=== PATIENT | male | born 1965 | race African-American/Black ===

== ENCOUNTER 2016-10-13 17:44 | Emergency (ER) | payer MEDICAID, OTHER ==
[~2016-10-13] VITALS: Ht 177.8 cm; Wt 83.9 kg
[~2016-10-13 17:44] MED LIST: ATORVASTATIN CA10 MG ORAL; CYCLOBENZAPRINE10 MG ORAL; NORCO 5-325 TA1 EACH ORAL; NORVASC10 MG ORAL; VICOPROFEN 2001 EACH ORAL
--- NOTE | 2016-10-13 18:08 | Emergency Room Report ---
History of Present Illness General Chief Complaint: Head Injury Source: Patient Present Illness HPI Patient is a 51-year-old male who presented after having increased altered level of consciousness. Patient reportedly had a fall approximately 1 day prior to arrival. Patient reportedly had been having increased slurring of speech. Patient had denied recent alcohol use. Patient states he fell and hit the right side of his head approximately 3 in the afternoon yesterday. He had not been vomiting. Patient reported having some pain to his right knee. Patient states he's had recent pain medication and had taken Vicoprofen after left shoulder surgery. Allergies: Coded Allergies: No Known Allergies (Unverified , 06/03/14) Patient History Past Medical History: see triage record Reviewed Nursing Documentation: PMH: Agreed, PSxH: Agreed Nursing Documentation-PMH Past Medical History: No History, Except For Hx Cardiac Problems: Yes Hx Hypertension: Yes - hyperlipidemia Hx Cancer: No Hx Gastrointestinal Problems: No Hx Neurological Problems: No Review of Systems All Other Systems: negative except mentioned in HPI Physical Exam Vital Signs Date Time Temp Pulse Resp B/P Pulse Ox O2 Delivery O2 Flow Rate FiO2 10/13/16 17:50 98.1 102 18 103/64 95 Room Air Sp02 EP Interpretation: reviewed, normal General Appearance: normal inspection, well appearing, no apparent distress, alert, GCS 15 Head: atraumatic ENT: normal ENT inspection, hearing grossly normal, normal voice Neck: normal inspection, full range of motion, supple, no bony tend Respiratory: normal inspection, lungs clear, normal breath sounds, no respiratory distress, no retraction, no wheezing Cardiovascular #1: regular rate, rhythm, no edema Gastrointestinal: normal inspection, normal bowel sounds, non tender, soft, no guarding, no hernia Genitourinary: no CVA tenderness Musculoskeletal: normal inspection, back normal, normal range of motion Neurologic: normal inspection, alert, oriented x3, responsive, office services associate III-XII nml as tested, speech normal Psychiatric: normal inspection, judgement/insight normal, mood/affect normal Skin: normal inspection, normal color, no rash Medical Decision Making Diagnostic Impression: Primary Impression: Acute head injury ER Course Patient presented after a fall. Differential diagnosis included was not limited to neck fracture, CVA, close head injury, syncopal episode, basilar ischemia. A CT imaging of the head was ordered due to patient's slurring of his speech. Because of complexity of patient's case laboratory imaging studies were ordered.CT the head read by radiology showed no acute fracture or hemorrhage. The patient noted have signs consistent with a minor head injury. Patient is also noted to be taking narcotic pain medication. Patient was advised to take Tylenol for pain. The patient noted have bilateral knee abrasions.The patient is advised to follow up with primary care doctor in 1-2 days. Patient is advised to return if any worsening condition or if any changes in status that are concerning. Last Vital Signs Date Time Temp Pulse Resp B/P Pulse Ox O2 Delivery O2 Flow Rate FiO2 10/13/16 17:50 98.1 102 18 103/64 95 Room Air Status: improved Disposition: HOME, SELF-CARE Condition: Stable Scripts Bacitracin Zinc* (BACITRACIN ZINC*) 1 Each Packet 1 APPLIC TOPIC THREE TIMES A DAY, #20 PACKET Prov: Harman Hart 10/13/16 Harman Hart Oct 13, 2016 18:08
[2016-10-13 18:16] VITALS: BP 103/64
[2016-10-13] MEDS ORDERED: Bacitracin Oint UD TOPIC ONE (18:30)
[2016-10-13] MEDS ORDERED: BACITRACIN ZIN1 EACH TOPIC (18:30)
[2016-10-13 19:04] VITALS: BP 115/70
[2016-10-13 19:05] VITALS: BP 115/70
--- NOTE | 2016-10-14 08:29 | Diagnostic Imaging Report ---
Indication: Altered mental status Technique: Continuous helical CT scanning of the head was performed without intravenous contrast material. Axial and coronal 5 mm sections were generated. Radiation dose was minimized using automated exposure control Dose: Total Dose Length Product - DLP [address] Dose Index - CTDIvol(s) 70.38 mGy. Comparison: None Findings: The ventricular system is normal in size and configuration. There is no shift of midline structures. No abnormal extra-axial fluid collections are noted. There is no evidence of intracerebral bleeding. No other abnormal high or low density areas are noted within the brain. Impression: Normal CT scan of the head without contrast material. This agrees with the preliminary interpretation provided overnight by [facility] service. The CT scanner at [facility] is accredited by the [employer] and the scans are performed using protocols designed to limit radiation exposure to as low as reasonably achievable to attain images of sufficient resolution adequate for diagnostic evaluation.
== END 2016-10-13 19:05 | disposition home or self-care (01) ==
LOC: EMR 18:15
DX: S09.8XXA Other specified injuries of head, initial encounter (principal); W19.XXXA Unspecified fall, initial encounter; Y92.89 Other specified places as the place of occurrence of the external cause; I10 Essential (primary) hypertension; E78.5 Hyperlipidemia, unspecified
CPT/HCPCS: 70450; 99284

== ENCOUNTER 2016-12-01 21:12 | Emergency (ER) | payer MEDICAID, OTHER ==
[~2016-12-01] VITALS: Ht 177.8 cm; Wt 83.0 kg
[~2016-12-01 21:12] MED LIST changes: +BACITRACIN ZIN1 EACH TOPIC
[2016-12-01] MEDS ORDERED: IBUPROFEN600 MG ORAL (21:39)
[2016-12-01] MEDS ORDERED: ACETAMINOPHEN-1 EAC1 ORAL (21:39)
[2016-12-01] MEDS ORDERED: VENTOLIN HFA18 GM INH (21:39)
[2016-12-01] MEDS ORDERED: TAMIFLU75 MG ORAL (21:39)
[2016-12-01] MEDS ORDERED: Albuterol ud Inhalation HHN ONE (21:45)
[2016-12-01] MEDS ORDERED: Ketorolac 60mg Inj IM ONE (21:45)
--- NOTE | 2016-12-01 21:45 | Emergency Room Report ---
History of Present Illness General Chief Complaint: Flu Like Symptoms Source: Patient Present Illness HPI 51YOM walk-in with 2 days myalgias, central sore throat pain, non productive cough. Didnt get flu shot this year. Denies smoking, asthma history. Denies chest pain, SOB, abd pain, headache, urinary complaints. Didnt take any OTC meds. Allergies: Coded Allergies: No Known Allergies (Unverified , 06/03/14) Patient History Past Medical History: HTN Past Surgical History: none Pertinent Family History: none Social History: Denies: alcohol use, drug use, smoking Immunizations: UTD Reviewed Nursing Documentation: PMH: Agreed, PSxH: Agreed Nursing Documentation-PMH Hx Cardiac Problems: Yes Hx Hypertension: Yes Hx Cancer: No Hx Gastrointestinal Problems: No Hx Neurological Problems: No Review of Systems All Other Systems: negative except mentioned in HPI Physical Exam Vital Signs Date Time Temp Pulse Resp B/P Pulse Ox O2 Delivery O2 Flow Rate FiO2 12/01/16 21:14 103.3 103 18 129/83 98 Room Air Sp02 EP Interpretation: reviewed, abnormal General Appearance: normal inspection, well appearing, no apparent distress, alert, GCS 15, non-toxic Head: normocephalic Eyes: bilateral eye EOMI, bilateral eye normal inspection ENT: normal ENT inspection, hearing grossly normal, normal pharynx, no angioedema, normal voice, TMs + canals normal, uvula midline, moist mucus membranes Neck: normal inspection, full range of motion, supple, thyroid normal, no meningismus, no bony tend Respiratory: normal inspection, lungs clear, normal breath sounds, no rhonchi, no respiratory distress, no retraction, no accessory muscle use, no wheezing, speaking full sentences Cardiovascular #1: regular rate, rhythm, no edema, tachycardia Gastrointestinal: normal inspection, normal bowel sounds, non tender, soft, no guarding, no hernia Genitourinary: no CVA tenderness Musculoskeletal: normal inspection, back normal, normal range of motion, Shila' s Sign negative Neurologic: normal inspection, alert, oriented x3, responsive, lace pinner III-XII nml as tested, motor strength/tone normal, speech normal Psychiatric: normal inspection, judgement/insight normal, mood/affect normal Skin: normal inspection Lymphatic: normal inspection Medical Decision Making Diagnostic Impression: Primary Impression: Influenza-like symptoms ER Course 51YOM with 2 days body aches, fever, sore throat. No obvious source of bacterial infection in oropharynx, ears, lungs, skin, abdomen on exam VS c/w fever here Low suspicion for PNA or other acute bacterial process that would warrant additional lab, imaging, testing or admission Low suspicion for acute meningitis given no meningismus, well appearance, not altered PMD followup closely DC home Understands to return for worsening symptoms - Take ALL of tamiflu as prescribed - Use albuterol and T#3 as needed for cough, body aches - Ibuprofen for body aches Last Vital Signs Date Time Temp Pulse Resp B/P Pulse Ox O2 Delivery O2 Flow Rate FiO2 12/01/16 21:29 103 18 Room Air 12/01/16 21:14 103.3 129/83 98 Status: improved Disposition: HOME, SELF-CARE Condition: Improved Scripts Albuterol Sulfate (VENTOLIN HFA) 18 Gm Hfa.aer.ad 1 PUFF INH EVERY 6 HOURS for For Cough, #18 GM 0 Refills Prov: LISA HERNANDEZ M.D. 12/01/16 Acetaminophen With Codeine (T#3) (TYLENOL #3 TAB*) Y Tab 1 TAB ORAL QHS Y for For Cough for 7 Days, #20 TAB Prov: LISA HERNANDEZ M.D. 12/01/16 Ibuprofen* (MOTRIN*) 600 Mg Tablet 600 MG ORAL THREE TIMES A DAY for pain, body aches for 7 Days, #30 TAB 0 Refills Prov: LISA HERNANDEZ M.D. 12/01/16 Oseltamivir Phosphate (Tamiflu) 75 Mg Capsule 75 MG ORAL TWICE A DAY for 5 Days, #10 CAP Prov: LISA HERNANDEZ M.D. 12/01/16 Patient Instructions: Influenza, Adult, [id number] Additional Instructions: - Drink plenty of fluids, eat healthy food, get mild exercise - Take ALL of tamiflu until complete - Take ibuprofen every 8 hours for food as needed for sore throat and body aches - For cough, use albuterol pump during the day and Tylenol #3 at night - Follow up with your primary care doctor in 2-3 days LISA HERNANDEZ M.D. December 01, 2016 21:45
[2016-12-01 22:05] VITALS: BP 129/83
== END 2016-12-01 22:06 | disposition home or self-care (01) ==
LOC: EMR 21:50
DX: J11.1 Influenza due to unidentified influenza virus with other respiratory manifestations (principal); I10 Essential (primary) hypertension
CPT/HCPCS: 94640; 94664; 96372; 99284

== ENCOUNTER 2017-08-04 15:47 | Inpatient (IN) | payer MEDICAID, OTHER ==
[~2017-08-04] VITALS: Ht 177.8 cm; Wt 77.1 kg
[~2017-08-04 15:47] MED LIST changes: +ACETAMINOPHEN-1 EAC1 ORAL; +IBUPROFEN600 MG ORAL; +TAMIFLU75 MG ORAL; +VENTOLIN HFA18 GM INH
[2017-08-04 16:14] VITALS: BP 128/85
--- NOTE | 2017-08-04 17:06 | Diagnostic Imaging Report ---
Indication: Chest pain Technique: One view of the chest Comparison: And Findings: Lungs and pleural spaces are clear. Heart size is normal. There is a right shoulder prosthesis Impression: No acute process
[2017-08-04 17:11] LABS: APPEARANCE,URINE CLEAR; BILIRUBIN, URINE NEGATIVE (NEGATIVE); COLOR,URINE BROWN; GLUCOSE, URINE (UA) NEGATIVE (NEGATIVE); HEMATOCRIT 44.2 % (42.0-52.0); HEMOGLOBIN 14.4 G/DL (14.2-18.0); KETONES,URINE 1+ (NEGATIVE); LEUKOCYTE ESTERASE ,URINE 1+ (NEGATIVE); MEAN CORPUSCULAR VOLUME 93 FL (80-99); NITRITE,URINE NEGATIVE (NEGATIVE); PH,URINE 7 (4.5-8.0); PLATELET COUNT 255 K/UL (150-450); PROTEIN,URINE 2+ (NEGATIVE); RED BLOOD COUNT 4.74 M/UL (4.70-6.10); RED CELL DISTRIBUTION WIDTH 11.3 % (11.6-14.8); UROBILINOGEN,URINE 4 MG/DL (0.0-1.0); WHITE BLOOD COUNT 18.5 K/UL (4.8-10.8)
[2017-08-04 17:15] LABS: BASOPHILS % (AUTO) 0.9 % (0.0-2.0); EOSINOPHILS % (AUTO) 0.1 % (0.0-3.0); LYMPHOCYTES % (AUTO) 10.2 % (20.0-45.0); MONOCYTES % (AUTO) 5.5 % (1.0-10.0); NEUTROPHILS % (AUTO) 83.3 % (45.0-75.0)
[2017-08-04] MEDS ORDERED: Ampicillin/Sulbactam Sod 3 GM in NS 110 ML IVPB ONE (17:30)
[2017-08-04] MEDS ORDERED: NS 110 ML ONE (17:31)
[2017-08-04] MEDS ORDERED: Tubing IV Cassette IV ONE (17:31)
[2017-08-04] MEDS ORDERED: Unasyn 3gm Inj ONE (17:31)
[2017-08-04 17:40] LABS: ANION GAP 12 mmol/L (5-15); BLOOD UREA NITROGEN 12 mg/dL (7-18); CALCIUM 9.2 MG/DL (8.5-10.1); CARBON DIOXIDE 25 MMOL/L (21-32); CHLORIDE 102 MMOL/L (98-107); CREATININE 1.5 MG/DL (0.55-1.30); POTASSIUM 3.9 MMOL/L (3.5-5.1); SODIUM 139 MMOL/L (136-145)
[2017-08-04 17:46] LABS: ALANINE AMINOTRANSFERASE 65 U/L (12-78); ALBUMIN 3.3 G/DL (3.4-5.0); ALBUMIN/GLOBULIN RATIO 0.6 (1.0-2.7); ALKALINE PHOSPHATASE 118 U/L (46-116); ASPARTATE AMINO TRANSFERASE 46 U/L (15-37); BILIRUBIN,TOTAL 0.6 MG/DL (0.2-1.0); CREATINE KINASE 614 U/L (26-308)
[2017-08-04 18:00] VITALS: BP 138/78
[2017-08-04] MEDS ORDERED: Miralax 17gm pkt ORAL PRN (18:15)
[2017-08-04] MEDS ORDERED: Albuterol/Ipratropium 3ml neb HHN PRN (18:15)
[2017-08-04] MEDS ORDERED: LORazepam Inj 2mg/ml 1ml IV PRN (18:15)
[2017-08-04] MEDS: Morphine Sulfate 4mg/ml Inj IVP PRN (19:38)
--- NOTE | 2017-08-04 21:54 | Emergency Room Report ---
History of Present Illness General Chief Complaint: Fever Present Illness HPI 52-year-old male presents to the emergency department complaining of fevers, chills and multiple episodes of vomiting since yesterday. Patient denies blood in the vomit he denies bloody stool, diarrhea or constipation. Reports 6/10 in severity [place], denies neck pain/stiffness or photophobia. Patient denies abdominal tenderness he reports only mild epigastric pain 4/10 in severity cramping in nature during episodes of vomiting. Patient states he does not have appreciable cough however he has been coughing intermittently which is nonproductive. Patient also reports some nasal congestion. Patient is up-to- date with vaccinations except at this ears flu shot he is relatively healthy and is only diagnosis of hypertension for which he takes Norvasc. Denies CP, Palpitations, LOC, AMS, dizziness, Changes in Vision, Sensation, paresthesias, or a sudden severe headache. Allergies: Coded Allergies: No Known Allergies (Unverified , 06/03/14) Patient History Past Medical History: see triage record, HTN - takes norvasc Past Surgical History: none Pertinent Family History: none Immunizations: UTD - no flu Reviewed Nursing Documentation: PMH: Agreed, PSxH: Agreed Nursing Documentation-PMH Hx Cardiac Problems: Yes Hx Hypertension: Yes Hx Cancer: No Hx Gastrointestinal Problems: No Hx Neurological Problems: No Review of Systems All Other Systems: negative except mentioned in HPI Physical Exam Vital Signs Date Time Temp Pulse Resp B/P (MAP) Pulse Ox O2 Delivery O2 Flow Rate FiO2 08/04/17 15:56 102.6 122 20 132/83 94 Room Air Sp02 EP Interpretation: reviewed, normal General Appearance: no apparent distress, alert, GCS 15, mild distress Head: normocephalic, atraumatic Eyes: bilateral eye normal inspection, bilateral eye PERRL ENT: hearing grossly normal, normal pharynx, normal voice, TMs + canals normal , uvula midline Neck: full range of motion, no meningismus, no bony tend Respiratory: chest non-tender, lungs clear, normal breath sounds, no respiratory distress, no accessory muscle use, speaking full sentences Cardiovascular #1: no edema, tachycardia Gastrointestinal: normal bowel sounds, non tender, soft Rectal: deferred Musculoskeletal: back normal, gait/station normal, normal range of motion, non- tender Neurologic: alert, oriented x3, responsive, motor strength/tone normal, sensory intact, speech normal, grossly normal Psychiatric: judgement/insight normal Skin: normal color, no rash, warm/dry Lymphatic: no adenopathy Medical Decision Making PA Attestation Dr. Hart is my supervising Physician whom patient management has been discussed with. Diagnostic Impression: Primary Impression: Acute kidney injury Additional Impressions: Acute kidney failure Qualified Codes: N17.9 - Acute kidney failure, unspecified Acute febrile illness Dehydration ER Course 52-year-old male presents to the emergency department complaining of fevers, chills and multiple episodes of vomiting since yesterday. Patient denies blood in the vomit he denies bloody stool, diarrhea or constipation. Reports 6/10 in severity [place], denies neck pain/stiffness or photophobia. Patient denies abdominal tenderness he reports only mild epigastric pain 4/10 in severity cramping in nature during episodes of vomiting. Patient states he does not have appreciable cough however he has been coughing intermittently which is nonproductive. Patient also reports some nasal congestion. Patient is up-to- date with vaccinations except at this ears flu shot he is relatively healthy and is only diagnosis of hypertension for which he takes Norvasc. Denies CP, Palpitations, LOC, AMS, dizziness, Changes in Vision, Sensation, paresthesias, or a sudden severe headache. Ddx considered but are not limited to URI, pneumonia, PE, strep pharyngitis, meningitis, influenza, OM/OE just to name a few. Vital signs: Pt. is tachycardic and febrile. H&PE are most consistent with Viral Syndrome suspicious for Influenza will treat clinically - no meningeal signs, Lungs are clear and oropharynx is not involved, no evidence of bacterial infection at this time. ORDERS: -CBC: leukocytosis of 18 -CMP: elevated Cr. 1.5, and elevated Total Ck and ALk Phos. Lactic Acid: 1.1 -Blood cultures: Pending -Influenza A & B: Negative -Trops: Negative -UA: occult blood, dark brown in color, TNTC RBC's, few bacteria and few squamous. ED INTERVENTIONS: -1 Liter NS Bolus - Zofran IV -Tylenol PO - Unasyn IV DISPOSITION: at this time pt. will be admitted to Dr. Macias for Acute febrile illness. Dr. Macias agreed to admit the pt. and to continue pt. care management. Labs Test 08/04/17 16:50 08/04/17 18:00 White Blood Count 18.5 K/UL (4.8-10.8) Red Blood Count 4.74 M/UL (4.70-6.10) Hemoglobin 14.4 G/DL (14.2-18.0) Hematocrit 44.2 % (42.0-52.0) Mean Corpuscular Volume 93 FL (80-99) Mean Corpuscular Hemoglobin 30.3 PG (27.0-31.0) Mean Corpuscular Hemoglobin Concent 32.5 G/DL (32.0-36.0) Red Cell Distribution Width 11.3 % (11.6-14.8) Platelet Count 255 K/UL (150-450) Mean Platelet Volume 7.0 FL (6.5-10.1) Neutrophils (%) (Auto) 83.3 % (45.0-75.0) Lymphocytes (%) (Auto) 10.2 % (20.0-45.0) Monocytes (%) (Auto) 5.5 % (1.0-10.0) Eosinophils (%) (Auto) 0.1 % (0.0-3.0) Basophils (%) (Auto) 0.9 % (0.0-2.0) Urine Color Brown Urine Appearance Clear Urine pH 7 (4.5-8.0) Urine Specific [place] 1.010 (1.005-1.035) Urine Protein 2+ (NEGATIVE) Urine Glucose (UA) Negative (NEGATIVE) Urine Ketones 1+ (NEGATIVE) Urine Occult Blood 3+ (NEGATIVE) Urine Nitrite Negative (NEGATIVE) Urine Bilirubin Negative (NEGATIVE) Urine Urobilinogen 4 MG/DL (0.0-1.0) Urine Leukocyte Esterase 1+ (NEGATIVE) Urine RBC 5-10 /HPF (0 - 0) Urine WBC 2-4 /HPF (0 - 0) Urine Squamous Epithelial Cells Occasional /LPF Urine Bacteria Few /HPF (NONE) Urine Mucus Few /LPF (NONE/OCC) Sodium Level 139 MMOL/L (136-145) Potassium Level 3.9 MMOL/L (3.5-5.1) Chloride Level 102 MMOL/L (98-107) Carbon Dioxide Level 25 MMOL/L (21-32) Anion Gap 12 mmol/L (5-15) Blood Urea Nitrogen 12 mg/dL (7-18) Creatinine 1.5 MG/DL (0.55-1.30) Estimat Glomerular Filtration Rate 59.4 mL/min (>60) Glucose Level 107 MG/DL (74-106) Calcium Level 9.2 MG/DL (8.5-10.1) Total Bilirubin 0.6 MG/DL (0.2-1.0) Aspartate Amino Transf (AST/SGOT) 46 U/L (15-37) Alanine Aminotransferase (ALT/SGPT) 65 U/L (12-78) Alkaline Phosphatase 118 U/L (46-116) Total Creatine Kinase 614 U/L (26-308) Troponin I 0.000 ng/mL (0.000-0.056) Total Protein 8.5 G/DL (6.4-8.2) Albumin 3.3 G/DL (3.4-5.0) Globulin 5.2 g/dL Albumin/Globulin Ratio 0.6 (1.0-2.7) Lactic Acid Level 1.10 mmol/L (0.66-2.22) EKG Diagnostic Results EP Interpretation: Dr. Hart Rate: normal - 99 BPM Rhythm: NSR ST Segments: no acute changes ASA given to the pt in ED: No PA Scribe Text This Interpretation was scribed by FARHAT Vizcarra. Chest X-Ray Diagnostic Results Chest X-Ray Diagnostic Results : Chest X-Ray Ordered: Yes # of Views/Limited/Complete: 1 View Indication: Shortness of Breath EP Interpretation: Yes FARHAT Xray: Interpretation reviewed, by supervising MD, and agrees with findings. Interpretation: no consolidation, no effusion, no pneumothorax Impression: No acute disease Electronically Signed by: Jayna Vizcarra PA-C Last Vital Signs Date Time Temp Pulse Resp B/P (MAP) Pulse Ox O2 Delivery O2 Flow Rate FiO2 08/04/17 18:00 103.3 110 20 138/78 97 08/04/17 16:14 Room Air Disposition: ADMITTED INPATIENT Condition: Serious Scripts Oseltamivir Phosphate (Tamiflu) 75 Mg Capsule 75 MG ORAL TWICE A DAY, #10 CAP Prov: Shad (Luis)Linda NP 08/07/17 Referrals: NON PHYSICIAN (PCP) Jayna Vizcarra Aug 04, 2017 21:54
[2017-08-04] MEDS ORDERED: Vancomycin 1250mg/D5W 250ml IVPB ONE (22:00)
[2017-08-04 22:14] VITALS: BP 135/83
[2017-08-04] MEDS ORDERED: Cefepime 2gm ONE (23:38)
[2017-08-05] MEDS: Morphine Sulfate 4mg/ml Inj IVP PRN ×6 (00:01→21:38)
[2017-08-05] MEDS: Heparin 5000 units/ml inj SUBQ SCH ×3 (00:05→21:46)
[2017-08-05 04:00] VITALS: BP 131/85
[2017-08-05 08:30] VITALS: BP 141/92
[2017-08-05] MEDS: Cefepime HCl 2 GM in NS 110 ML IV SCH ×3 (08:55)
[2017-08-05] MEDS ORDERED: Vancomycin 1 GM in D5W 275 ML IVPB SCH (10:00)
[2017-08-05 11:07] LABS: BASOPHILS % (AUTO) 0.9 % (0.0-2.0); HEMATOCRIT 38.5 % (42.0-52.0); HEMOGLOBIN 12.6 G/DL (14.2-18.0); LYMPHOCYTES % (AUTO) 8.5 % (20.0-45.0); MEAN CORPUSCULAR VOLUME 94 FL (80-99); MONOCYTES % (AUTO) 7.9 % (1.0-10.0); NEUTROPHILS % (AUTO) 82.7 % (45.0-75.0); PLATELET COUNT 210 K/UL (150-450); RED BLOOD COUNT 4.09 M/UL (4.70-6.10); RED CELL DISTRIBUTION WIDTH 11.4 % (11.6-14.8); WHITE BLOOD COUNT 16.3 K/UL (4.8-10.8)
[2017-08-05 11:33] LABS: ALBUMIN 2.8 G/DL (3.4-5.0); ANION GAP 11 mmol/L (5-15); BLOOD UREA NITROGEN 10 mg/dL (7-18); CALCIUM 8.9 MG/DL (8.5-10.1); CARBON DIOXIDE 24 MMOL/L (21-32); CHLORIDE 102 MMOL/L (98-107); CREATININE 1.3 MG/DL (0.55-1.30); PHOSPHORUS 2.4 MG/DL (2.5-4.9); POTASSIUM 3.6 MMOL/L (3.5-5.1); SODIUM 137 MMOL/L (136-145)
[2017-08-05 12:00] VITALS: BP 129/89
--- NOTE | 2017-08-05 14:06 | Consultation ---
History of Present Illness General Date patient seen: Aug 05, 2017 Time patient seen: 14:05 Chief Complaint: Fever Present Illness HPI 52 y/o M with hx of HTN presents to ED on 08/04 with fevers/chills and multiple episodes of vomiting and EDMONDSON (6/10 severity) for 1 day duration. Also mild cramping epigastric pain (4/10 severity) during episodes of vomiting. + intermittent non-productive cough, +nasal congestion. Did not received Flu shot this year. Denies hematemesis, melena, hematochezia, diarrhea, neck pain/stiffness, photophobia, LOC, dizziness, visual changes, numbness/tingling. Febrile up to 103. Leukocytosis up to 18, now down to 16. rapid influenza neg. Started on IV Vanco and Cefepime. Allergies: Coded Allergies: No Known Allergies (Unverified , 06/03/14) Medication History Scheduled Albuterol Sulfate (Ventolin Hfa), 1 PUFF INH EVERY 6 HOURS Amlodipine Besylate (Norvasc), 10 MG ORAL DAILY, (Reported) Atorvastatin Calcium* (Lipitor*), 10 MG ORAL BEDTIME, (Reported) Bacitracin Zinc* (Bacitracin Zinc*), 1 APPLIC TOPIC THREE TIMES A DAY Hydrocodone/Ibuprofen (Vicoprofen 200-7.5 Mg Tab), 2 TAB ORAL QID, (Reported) Ibuprofen* (Motrin*), 600 MG ORAL THREE TIMES A DAY Oseltamivir Phosphate (Tamiflu), 75 MG ORAL TWICE A DAY Scheduled PRN Acetaminophen With Codeine (T#3) (Tylenol #3 Tab*), 1 TAB ORAL QHS PRN for For Cough Patient History Healthcare decision maker N Resuscitation status Full Code Advanced Directive on File No Patient History Narrative Pmhx: as above Shx: reviewed Fhx: non contributory Review of Systems All Other Systems: negative except mentioned in HPI Physical Exam Physical Exam Narrative General Appearance: no apparent distress, alert, mild distress Head: normocephalic, atraumatic Eyes: bilateral eye normal inspection, bilateral eye PERRL ENT: hearing grossly normal, normal pharynx, normal voice, TMs + canals normal , uvula midline Neck: full range of motion, no meningismus, no bony tend Respiratory: chest non-tender, lungs clear, normal breath sounds, no respiratory distress, no accessory muscle use, speaking full sentences Cardiovascular : regular rate, rhythm, no edema Gastrointestinal: normal bowel sounds, non tender, soft Musculoskeletal: back normal, gait/station normal, normal range of motion, non- tender Skin: normal color, no rash, warm/dry Last 24 Hour Vital Signs Date Time Temp Pulse Resp B/P (MAP) Pulse Ox O2 Delivery O2 Flow Rate FiO2 08/05/17 13:24 99.5 08/05/17 09:57 99.5 08/05/17 09:57 99.5 08/05/17 08:54 105 141/92 08/05/17 08:30 102.2 105 18 141/92 95 Room Air 08/05/17 07:46 104 08/05/17 04:00 101.8 107 20 131/85 94 Room Air 08/05/17 04:00 105 08/05/17 00:00 106 08/04/17 22:14 103.3 110 20 138/78 97 Room Air 08/04/17 22:14 98.9 86 20 135/83 97 Room Air 110 08/04/17 18:00 103.3 110 20 138/78 97 08/04/17 16:14 102.6 90 20 128/85 94 Room Air 08/04/17 15:56 102.6 122 20 132/83 94 Room Air Intake and Output 08/04/17 08/05/17 19:00 07:00 Intake Total 110 ml 50 ml Balance 110 ml 50 ml Intake Oral 0 ml IV Total 110 ml 50 ml # Voids 2 Laboratory Tests Test 08/04/17 16:50 08/04/17 18:00 08/05/17 10:00 White Blood Count 18.5 K/UL (4.8-10.8) H 16.3 K/UL (4.8-10.8) H Red Blood Count 4.74 M/UL (4.70-6.10) 4.09 M/UL (4.70-6.10) L Hemoglobin 14.4 G/DL (14.2-18.0) 12.6 G/DL (14.2-18.0) L Hematocrit 44.2 % (42.0-52.0) 38.5 % (42.0-52.0) L Mean Corpuscular Volume 93 FL (80-99) 94 FL (80-99) Mean Corpuscular Hemoglobin 30.3 PG (27.0-31.0) 30.7 PG (27.0-31.0) Mean Corpuscular Hemoglobin Concent 32.5 G/DL (32.0-36.0) 32.7 G/DL (32.0-36.0) Red Cell Distribution Width 11.3 % (11.6-14.8) L 11.4 % (11.6-14.8) L Platelet Count 255 K/UL (150-450) 210 K/UL (150-450) Mean Platelet Volume 7.0 FL (6.5-10.1) 7.2 FL (6.5-10.1) Neutrophils (%) (Auto) 83.3 % (45.0-75.0) H 82.7 % (45.0-75.0) H Lymphocytes (%) (Auto) 10.2 % (20.0-45.0) L 8.5 % (20.0-45.0) L Monocytes (%) (Auto) 5.5 % (1.0-10.0) 7.9 % (1.0-10.0) Eosinophils (%) (Auto) 0.1 % (0.0-3.0) 0.0 % (0.0-3.0) Basophils (%) (Auto) 0.9 % (0.0-2.0) 0.9 % (0.0-2.0) Urine Color Brown Urine Appearance Clear Urine pH 7 (4.5-8.0) Urine Specific [place] 1.010 (1.005-1.035) Urine Protein 2+ (NEGATIVE) H Urine Glucose (UA) Negative (NEGATIVE) Urine Ketones 1+ (NEGATIVE) H Urine Occult Blood 3+ (NEGATIVE) H Urine Nitrite Negative (NEGATIVE) Urine Bilirubin Negative (NEGATIVE) Urine Urobilinogen 4 MG/DL (0.0-1.0) H Urine Leukocyte Esterase 1+ (NEGATIVE) H Urine RBC 5-10 /HPF (0 - 0) H Urine WBC 2-4 /HPF (0 - 0) Urine Squamous Epithelial Cells Occasional /LPF Urine Bacteria Few /HPF (NONE) Urine Mucus Few /LPF (NONE/OCC) H Sodium Level 139 MMOL/L (136-145) 137 MMOL/L (136-145) Potassium Level 3.9 MMOL/L (3.5-5.1) 3.6 MMOL/L (3.5-5.1) Chloride Level 102 MMOL/L (98-107) 102 MMOL/L (98-107) Carbon Dioxide Level 25 MMOL/L (21-32) 24 MMOL/L (21-32) Anion Gap 12 mmol/L (5-15) 11 mmol/L (5-15) Blood Urea Nitrogen 12 mg/dL (7-18) 10 mg/dL (7-18) Creatinine 1.5 MG/DL (0.55-1.30) H 1.3 MG/DL (0.55-1.30) Estimat Glomerular Filtration Rate 59.4 mL/min (>60) > 60 mL/min (>60) Glucose Level 107 MG/DL (74-106) H 115 MG/DL (74-106) H Calcium Level 9.2 MG/DL (8.5-10.1) 8.9 MG/DL (8.5-10.1) Total Bilirubin 0.6 MG/DL (0.2-1.0) Aspartate Amino Transf (AST/SGOT) 46 U/L (15-37) H Alanine Aminotransferase (ALT/SGPT) 65 U/L (12-78) Alkaline Phosphatase 118 U/L (46-116) H Total Creatine Kinase 614 U/L (26-308) H Troponin I 0.000 ng/mL (0.000-0.056) Total Protein 8.5 G/DL (6.4-8.2) H Albumin 3.3 G/DL (3.4-5.0) L 2.8 G/DL (3.4-5.0) L Globulin 5.2 g/dL Albumin/Globulin Ratio 0.6 (1.0-2.7) L Lactic Acid Level 1.10 mmol/L (0.66-2.22) Phosphorus Level 2.4 MG/DL (2.5-4.9) L Microbiology Date/Time Source Procedure Growth Status 08/04/17 16:35 Nasal Nares Influenza Types A,B Antigen (NANCY) - Final Complete Height (Feet): 5 Height (Inches): 10.00 Weight (Pounds): 170 Medications Current Medications Medications (Trade) Dose Ordered Sig/Abby Route PRN Reason Start Time Stop Time Status Last Admin Dose Admin Acetaminophen (Tylenol) 650 mg Q4H PRN ORAL T>100.5 08/04/17 18:15 09/03/17 18:14 08/05/17 08:58 Albuterol/ Ipratropium (Albuterol/ Ipratropium) 3 ml Q4H PRN HHN Shortness of Breath 08/04/17 18:15 08/09/17 18:14 Amlodipine Besylate (Norvasc) 10 mg DAILY ORAL 08/05/17 09:00 09/04/17 08:59 08/05/17 08:54 Atorvastatin Calcium (Lipitor) 10 mg BEDTIME ORAL 08/04/17 21:00 09/03/17 20:59 08/04/17 23:59 Cefepime HCl 2 gm/ Sodium Chloride 110 ml @ 220 mls/hr EVERY 12 HOURS IV 08/04/17 21:00 08/11/17 20:59 08/05/17 08:55 Dextrose (Dextrose 50%) STAT PRN IV Hypoglycemia 08/04/17 18:15 09/03/17 18:14 Heparin Sodium (Porcine) (Heparin 5000 units/ml) 5,000 units EVERY 12 HOURS SUBQ 08/04/17 21:00 09/03/17 20:59 08/05/17 08:45 Lorazepam (Ativan 2mg/ml 1ml) 2 mg Q2H PRN IV For Anxiety 08/04/17 18:15 08/11/17 18:14 Morphine Sulfate (Morphine Sulfate) 4 mg Q4H PRN IVP Severe Pain (Pain Scale 7-10) 08/04/17 18:15 08/11/17 18:14 08/05/17 12:54 Ondansetron HCl (Zofran) 4 mg Q6H PRN IVP Nausea & Vomiting 08/04/17 18:15 09/03/17 18:14 Polyethylene Glycol (Miralax) 17 gm DAILYPRN PRN ORAL Constipation 08/04/17 18:15 09/03/17 18:14 Sodium Chloride 1,000 ml @ 50 mls/hr Q20H IV 08/04/17 19:00 09/03/17 18:59 08/04/17 23:59 Vancomycin HCl (Vanco rx to dose) 1 ea DAILY PRN MISC PRN RX TO DOSE PROTOCOL 08/04/17 21:00 09/03/17 20:59 Vancomycin HCl 1 gm/Dextrose 275 ml @ 183.3 mls/ hr Q12HR@1000,2200 IVPB 08/05/17 10:00 08/10/17 09:59 08/05/17 10:42 Assessment/Plan Assessment/Plan Abx: IV Vanco 08/04- Cefepime 08/04- IV Unasyn x1 08/04 Assessment: Viral syndrome- high suspicion for Influenza despite rapid test. r/o bacteremia , r/o Acute HIV Fever/leukocytosis -CXR: : No acute process -u/a WBC 2-4, nit -, leuk +1 -Bcx p Headache- no meningismus signs, however severe and persistent- suspect meningitis (likely aseptic, however suspicion for bacterial process) HTN Plan: -Will treat empirically for Influenza; start Tamiflu #07/10 -repeat influenza test, RSV ag -HIV ab and VL -will Continue for now empiric IV Vanco and switch Cefepime #2 to Ceftriaxone pending Bcx and CSF profile; may d/c in 24-48hrs pending cx -CRP -will obtain Lumbar puncture -CSF analysis, cx, WNV ab -f/u cx -Monitor CBC/CMP, temperatures -supportive treatment/pain control Thank you for this consultation. Will continue to follow along with you. Discussed with Ivelisse Lira M.D. Aug 05, 2017 14:06
--- NOTE | 2017-08-05 15:29 | History and Physical ---
History of Present Illness General Date patient seen: Aug 05, 2017 Reason for Hospitalization: Fever Present Illness HPI 52-year-old male presents to the emergency department complaining of fevers, chills and multiple episodes of vomiting . Reports 6/10 in severity EDMONDSON, denies neck pain/stiffness or photophobia. He reports only mild epigastric pain 4/10 in severity cramping in nature during episodes of vomiting. Patient states he does not have appreciable cough however he has been coughing intermittently which is nonproductive. Allergies: Coded Allergies: No Known Allergies (Unverified , 06/03/14) Medication History Scheduled Albuterol Sulfate (Ventolin Hfa), 1 PUFF INH EVERY 6 HOURS Amlodipine Besylate (Norvasc), 10 MG ORAL DAILY, (Reported) Atorvastatin Calcium* (Lipitor*), 10 MG ORAL BEDTIME, (Reported) Bacitracin Zinc* (Bacitracin Zinc*), 1 APPLIC TOPIC THREE TIMES A DAY Hydrocodone/Ibuprofen (Vicoprofen 200-7.5 Mg Tab), 2 TAB ORAL QID, (Reported) Ibuprofen* (Motrin*), 600 MG ORAL THREE TIMES A DAY Oseltamivir Phosphate (Tamiflu), 75 MG ORAL TWICE A DAY Scheduled PRN Acetaminophen With Codeine (T#3) (Tylenol #3 Tab*), 1 TAB ORAL QHS PRN for For Cough Patient History Healthcare decision maker N Resuscitation status Full Code Advanced Directive on File No Review of Systems Constitutional: Reports: fever Neurological: Reports: headache Physical Exam General Appearance: WD/WN Lines, tubes and drains: peripheral HEENT: normocephalic Neck: non-tender Respiratory/Chest: chest wall non-tender Cardiovascular/Chest: normal peripheral pulses, normal rate Abdomen: normal bowel sounds Last 24 Hour Vital Signs Date Time Temp Pulse Resp B/P (MAP) Pulse Ox O2 Delivery O2 Flow Rate FiO2 08/05/17 13:24 99.5 08/05/17 12:00 98.1 92 18 129/89 94 Room Air 08/05/17 11:27 91 08/05/17 09:57 99.5 08/05/17 09:57 99.5 08/05/17 08:54 105 141/92 08/05/17 08:30 102.2 105 18 141/92 95 Room Air 08/05/17 07:46 104 08/05/17 04:00 101.8 107 20 131/85 94 Room Air 08/05/17 04:00 105 08/05/17 00:00 106 08/04/17 22:14 103.3 110 20 138/78 97 Room Air 08/04/17 22:14 98.9 86 20 135/83 97 Room Air 110 08/04/17 18:00 103.3 110 20 138/78 97 08/04/17 16:14 102.6 90 20 128/85 94 Room Air 08/04/17 15:56 102.6 122 20 132/83 94 Room Air Intake and Output 08/04/17 08/05/17 19:00 07:00 Intake Total 110 ml 50 ml Balance 110 ml 50 ml Intake Oral 0 ml IV Total 110 ml 50 ml # Voids 2 Laboratory Tests Test 08/04/17 16:50 08/04/17 18:00 08/05/17 10:00 08/05/17 14:30 White Blood Count 18.5 K/UL (4.8-10.8) H 16.3 K/UL (4.8-10.8) H Red Blood Count 4.74 M/UL (4.70-6.10) 4.09 M/UL (4.70-6.10) L Hemoglobin 14.4 G/DL (14.2-18.0) 12.6 G/DL (14.2-18.0) L Hematocrit 44.2 % (42.0-52.0) 38.5 % (42.0-52.0) L Mean Corpuscular Volume 93 FL (80-99) 94 FL (80-99) Mean Corpuscular Hemoglobin 30.3 PG (27.0-31.0) 30.7 PG (27.0-31.0) Mean Corpuscular Hemoglobin Concent 32.5 G/DL (32.0-36.0) 32.7 G/DL (32.0-36.0) Red Cell Distribution Width 11.3 % (11.6-14.8) L 11.4 % (11.6-14.8) L Platelet Count 255 K/UL (150-450) 210 K/UL (150-450) Mean Platelet Volume 7.0 FL (6.5-10.1) 7.2 FL (6.5-10.1) Neutrophils (%) (Auto) 83.3 % (45.0-75.0) H 82.7 % (45.0-75.0) H Lymphocytes (%) (Auto) 10.2 % (20.0-45.0) L 8.5 % (20.0-45.0) L Monocytes (%) (Auto) 5.5 % (1.0-10.0) 7.9 % (1.0-10.0) Eosinophils (%) (Auto) 0.1 % (0.0-3.0) 0.0 % (0.0-3.0) Basophils (%) (Auto) 0.9 % (0.0-2.0) 0.9 % (0.0-2.0) Urine Color Brown Urine Appearance Clear Urine pH 7 (4.5-8.0) Urine Specific [place] 1.010 (1.005-1.035) Urine Protein 2+ (NEGATIVE) H Urine Glucose (UA) Negative (NEGATIVE) Urine Ketones 1+ (NEGATIVE) H Urine Occult Blood 3+ (NEGATIVE) H Urine Nitrite Negative (NEGATIVE) Urine Bilirubin Negative (NEGATIVE) Urine Urobilinogen 4 MG/DL (0.0-1.0) H Urine Leukocyte Esterase 1+ (NEGATIVE) H Urine RBC 5-10 /HPF (0 - 0) H Urine WBC 2-4 /HPF (0 - 0) Urine Squamous Epithelial Cells Occasional /LPF Urine Bacteria Few /HPF (NONE) Urine Mucus Few /LPF (NONE/OCC) H Sodium Level 139 MMOL/L (136-145) 137 MMOL/L (136-145) Potassium Level 3.9 MMOL/L (3.5-5.1) 3.6 MMOL/L (3.5-5.1) Chloride Level 102 MMOL/L (98-107) 102 MMOL/L (98-107) Carbon Dioxide Level 25 MMOL/L (21-32) 24 MMOL/L (21-32) Anion Gap 12 mmol/L (5-15) 11 mmol/L (5-15) Blood Urea Nitrogen 12 mg/dL (7-18) 10 mg/dL (7-18) Creatinine 1.5 MG/DL (0.55-1.30) H 1.3 MG/DL (0.55-1.30) Estimat Glomerular Filtration Rate 59.4 mL/min (>60) > 60 mL/min (>60) Glucose Level 107 MG/DL (74-106) H 115 MG/DL (74-106) H Calcium Level 9.2 MG/DL (8.5-10.1) 8.9 MG/DL (8.5-10.1) Total Bilirubin 0.6 MG/DL (0.2-1.0) Aspartate Amino Transf (AST/SGOT) 46 U/L (15-37) H Alanine Aminotransferase (ALT/SGPT) 65 U/L (12-78) Alkaline Phosphatase 118 U/L (46-116) H Total Creatine Kinase 614 U/L (26-308) H Troponin I 0.000 ng/mL (0.000-0.056) Total Protein 8.5 G/DL (6.4-8.2) H Albumin 3.3 G/DL (3.4-5.0) L 2.8 G/DL (3.4-5.0) L Globulin 5.2 g/dL Albumin/Globulin Ratio 0.6 (1.0-2.7) L Lactic Acid Level 1.10 mmol/L (0.66-2.22) Phosphorus Level 2.4 MG/DL (2.5-4.9) L RSV Nasal Swab Pending Microbiology Date/Time Source Procedure Growth Status 08/04/17 16:35 Nasal Nares Influenza Types A,B Antigen (NANCY) - Final Complete Height (Feet): 5 Height (Inches): 10.00 Weight (Pounds): 170 Medications Current Medications Medications (Trade) Dose Ordered Sig/Abby Route PRN Reason Start Time Stop Time Status Last Admin Dose Admin Acetaminophen (Tylenol) 650 mg Q4H PRN ORAL T>100.5 08/04/17 18:15 09/03/17 18:14 08/05/17 08:58 Albuterol/ Ipratropium (Albuterol/ Ipratropium) 3 ml Q4H PRN HHN Shortness of Breath 08/04/17 18:15 08/09/17 18:14 Amlodipine Besylate (Norvasc) 10 mg DAILY ORAL 08/05/17 09:00 09/04/17 08:59 08/05/17 08:54 Atorvastatin Calcium (Lipitor) 10 mg BEDTIME ORAL 08/04/17 21:00 09/03/17 20:59 08/04/17 23:59 Ceftriaxone Sodium 2 gm/ Dextrose 55 ml @ 110 mls/hr EVERY 12 HOURS IVPB 08/05/17 21:00 08/12/17 20:59 UNV Dextrose (Dextrose 50%) STAT PRN IV Hypoglycemia 08/04/17 18:15 09/03/17 18:14 Heparin Sodium (Porcine) (Heparin 5000 units/ml) 5,000 units EVERY 12 HOURS SUBQ 08/04/17 21:00 09/03/17 20:59 08/05/17 08:45 Lorazepam (Ativan 2mg/ml 1ml) 2 mg Q2H PRN IV For Anxiety 08/04/17 18:15 08/11/17 18:14 Morphine Sulfate (Morphine Sulfate) 4 mg Q4H PRN IVP Severe Pain (Pain Scale 7-10) 08/04/17 18:15 08/11/17 18:14 08/05/17 12:54 Ondansetron HCl (Zofran) 4 mg Q6H PRN IVP Nausea & Vomiting 08/04/17 18:15 09/03/17 18:14 Oseltamivir Phosphate (Tamiflu) 75 mg TWICE A DAY ORAL 08/05/17 16:00 08/10/17 15:59 Polyethylene Glycol (Miralax) 17 gm DAILYPRN PRN ORAL Constipation 08/04/17 18:15 09/03/17 18:14 Sodium Chloride 1,000 ml @ 50 mls/hr Q20H IV 08/04/17 19:00 09/03/17 18:59 08/04/17 23:59 Vancomycin HCl (Vanco rx to dose) 1 ea DAILY PRN MISC PRN RX TO DOSE PROTOCOL 08/04/17 21:00 09/03/17 20:59 Vancomycin HCl 1 gm/Dextrose 275 ml @ 183.3 mls/ hr Q12HR@1000,2200 IVPB 08/05/17 10:00 08/10/17 09:59 08/05/17 10:42 Assessment/Plan Problem List: (1) Acute febrile illness ICD Codes: R50.9 - Fever, unspecified SNOMED: [id number] (2) Viral syndrome ICD Codes: B34.9 - Viral infection, unspecified SNOMED: 36775474, [id number] Assessment/Plan truong culture ID evaluation IV abx isolation for now. VIVIANA TABARES Aug 05, 2017 15:28
[2017-08-05 16:00] VITALS: BP 134/88
[2017-08-05] MEDS ORDERED: Oseltamivir 75mg cap ORAL SCH (16:00)
--- NOTE | 2017-08-05 18:54 | Cardiology Report ---
APPROVED REPORT EKG Measurement Heart [id number] Normal sinus rhythm Septal infarct, age undetermined Abnormal ECG
[2017-08-05 20:11] VITALS: BP 129/83
[2017-08-05 21:00] VITALS: BP 134/94
[2017-08-05] MEDS: cefTRIAXone 2 GM in NS 55 ML IVPB SCH (21:00)
[2017-08-05] MEDS ORDERED: LORazepam Inj 2mg/ml 1ml IV PRN (21:00)
[2017-08-05] MEDS ORDERED: cefTRIAXone 2 GM in NS 55 ML IVPB SCH (21:00)
[2017-08-05] MEDS ORDERED: Miralax 17gm pkt ORAL PRN (21:00)
[2017-08-05] MEDS ORDERED: Albuterol/Ipratropium 3ml neb HHN PRN (21:30)
[2017-08-05] MEDS: Vancomycin 1 GM in D5W 275 ML IVPB SCH (22:30)
[2017-08-06] VITALS: BP 120/86
[2017-08-06] MEDS: Morphine Sulfate 4mg/ml Inj IVP PRN ×5 (01:42→21:39)
[2017-08-06 04:42] VITALS: BP 129/82
[2017-08-06 08:00] VITALS: BP 97/62
[2017-08-06] MEDS: Heparin 5000 units/ml inj SUBQ SCH ×2 (09:00→21:00)
[2017-08-06] MEDS: Oseltamivir 75mg cap ORAL SCH ×2 (09:00→19:16)
[2017-08-06] MEDS: cefTRIAXone 2 GM in NS 55 ML IVPB SCH ×2 (10:07→22:38)
[2017-08-06 10:54] LABS: BASOPHILS % (AUTO) 0.8 % (0.0-2.0); EOSINOPHILS % (AUTO) 0.5 % (0.0-3.0); HEMATOCRIT 37.6 % (42.0-52.0); HEMOGLOBIN 12.7 G/DL (14.2-18.0); MEAN CORPUSCULAR VOLUME 93 FL (80-99); MONOCYTES % (AUTO) 8.5 % (1.0-10.0); NEUTROPHILS % (AUTO) 77.2 % (45.0-75.0); PLATELET COUNT 216 K/UL (150-450); RED BLOOD COUNT 4.03 M/UL (4.70-6.10); RED CELL DISTRIBUTION WIDTH 11.5 % (11.6-14.8); WHITE BLOOD COUNT 11.5 K/UL (4.8-10.8)
[2017-08-06] MEDS: Vancomycin 1 GM in D5W 275 ML IVPB SCH ×2 (11:06→21:07)
[2017-08-06 11:24] LABS: ALANINE AMINOTRANSFERASE 44 U/L (12-78); ALBUMIN 2.7 G/DL (3.4-5.0); ALBUMIN/GLOBULIN RATIO 0.6 (1.0-2.7); ALKALINE PHOSPHATASE 98 U/L (46-116); ANION GAP 9 mmol/L (5-15); ASPARTATE AMINO TRANSFERASE 37 U/L (15-37); BILIRUBIN,TOTAL 0.5 MG/DL (0.2-1.0); BLOOD UREA NITROGEN 10 mg/dL (7-18); CALCIUM 8.8 MG/DL (8.5-10.1); CARBON DIOXIDE 27 MMOL/L (21-32); CHLORIDE 102 MMOL/L (98-107); CREATININE 1.1 MG/DL (0.55-1.30); POTASSIUM 4.1 MMOL/L (3.5-5.1); SODIUM 138 MMOL/L (136-145)
--- NOTE | 2017-08-06 11:29 | Infectious Diseases Prog Note ---
Assessment/Plan Assessment/Plan Assessment: Viral syndrome- high suspicion for Influenza despite rapid test. r/o bacteremia , r/o Acute HIV Fever/leukocytosis -CXR: : No acute process -u/a WBC 2-4, nit -, leuk +1 -Bcx p Headache- no meningismus signs, however severe and persistent- suspect meningitis (likely aseptic, however suspicion for bacterial process) HTN Plan: -Continue empiric Tamiflu #2/5 -will Continue empiric IV Vanco #3 and Ceftriaxone abx d#3 pending Bcx and CSF profile; may d/c in 24-48hrs pending cx -08/05 SP Cefepime #2 -08/04 SP Unasyn x1 -Head CT w/o STAT -will obtain Lumbar puncture -CSF analysis, cx, WNV ab -f/u RSV ag, HIV ab and VL, CRP -f/u cx -Monitor CBC/CMP, temperatures -supportive treatment/pain control per PCP Thank you for this consultation. Will continue to follow along with you. Discussed with RN and interventional radiologist. Subjective Allergies: Coded Allergies: No Known Allergies (Unverified , 06/03/14) Subjective fever curve improving, Tm 102, in the last 12 hrs, Tm 100.2 leukocytosis improving awaiting LP still having significant headache. Objective Vital Signs Last 24 Hour Vital Signs Date Time Temp Pulse Resp B/P (MAP) Pulse Ox O2 Delivery O2 Flow Rate FiO2 08/06/17 08:00 98.3 99 20 97/62 96 08/06/17 07:40 94 16 Room Air 21 08/06/17 04:42 98.5 87 19 129/82 96 08/06/17 00:00 100.2 97 20 120/86 96 08/05/17 22:08 98.6 08/05/17 21:00 98.6 98 20 134/94 98 08/05/17 20:11 99.7 89 18 129/83 96 Room Air 08/05/17 17:25 99.5 08/05/17 16:40 99.5 08/05/17 16:37 99.5 08/05/17 16:00 102.0 106 18 134/88 94 Room Air 08/05/17 15:16 113 08/05/17 12:00 98.1 92 18 129/89 94 Room Air 08/05/17 11:27 91 Height (Feet): 5 Height (Inches): 10.00 Weight (Pounds): 170 Objective General Appearance: no apparent distress, alert, mild distress Head: normocephalic, atraumatic Eyes: bilateral eye normal inspection, bilateral eye PERRL ENT: hearing grossly normal, normal pharynx, normal voice, TMs + canals normal , uvula midline Neck: full range of motion, no meningismus, no bony tend Respiratory: chest non-tender, lungs clear, normal breath sounds, no respiratory distress, no accessory muscle use, speaking full sentences Cardiovascular : regular rate, rhythm, no edema Gastrointestinal: normal bowel sounds, non tender, soft Musculoskeletal: back normal, gait/station normal, normal range of motion, non- tender Skin: normal color, no rash, warm/dry Microbiology Date/Time Source Procedure Growth Status 08/04/17 17:50 Blood Blood Culture - Preliminary NO GROWTH AFTER 24 HOURS Resulted 08/04/17 17:40 Blood Blood Culture - Preliminary NO GROWTH AFTER 24 HOURS Resulted 08/05/17 14:30 Nasopharynx Influenza Types A,B Antigen (NANCY) - Final Complete 08/04/17 16:35 Nasal Nares Influenza Types A,B Antigen (NANCY) - Final Complete Laboratory Tests Test 08/05/17 14:30 08/06/17 09:30 RSV Nasal Swab Pending White Blood Count 11.5 K/UL (4.8-10.8) H Red Blood Count 4.03 M/UL (4.70-6.10) L Hemoglobin 12.7 G/DL (14.2-18.0) L Hematocrit 37.6 % (42.0-52.0) L Mean Corpuscular Volume 93 FL (80-99) Mean Corpuscular Hemoglobin 31.4 PG (27.0-31.0) H Mean Corpuscular Hemoglobin Concent 33.7 G/DL (32.0-36.0) Red Cell Distribution Width 11.5 % (11.6-14.8) L Platelet Count 216 K/UL (150-450) Mean Platelet Volume 7.6 FL (6.5-10.1) Neutrophils (%) (Auto) 77.2 % (45.0-75.0) H Lymphocytes (%) (Auto) 13.0 % (20.0-45.0) L Monocytes (%) (Auto) 8.5 % (1.0-10.0) Eosinophils (%) (Auto) 0.5 % (0.0-3.0) Basophils (%) (Auto) 0.8 % (0.0-2.0) Sodium Level 138 MMOL/L (136-145) Potassium Level 4.1 MMOL/L (3.5-5.1) Chloride Level 102 MMOL/L (98-107) Carbon Dioxide Level 27 MMOL/L (21-32) Anion Gap 9 mmol/L (5-15) Blood Urea Nitrogen 10 mg/dL (7-18) Creatinine 1.1 MG/DL (0.55-1.30) Estimat Glomerular Filtration Rate > 60 mL/min (>60) Glucose Level 99 MG/DL (74-106) Calcium Level 8.8 MG/DL (8.5-10.1) Total Bilirubin 0.5 MG/DL (0.2-1.0) Aspartate Amino Transf (AST/SGOT) 37 U/L (15-37) Alanine Aminotransferase (ALT/SGPT) 44 U/L (12-78) Alkaline Phosphatase 98 U/L (46-116) C-Reactive Protein, Quantitative Pending Total Protein 6.9 G/DL (6.4-8.2) Albumin 2.7 G/DL (3.4-5.0) L Globulin 4.2 g/dL Albumin/Globulin Ratio 0.6 (1.0-2.7) L Vancomycin Level Trough 5.8 ug/mL (5.0-12.0) HIV (1&2) Antibody Rapid Pending Current Medications Medications (Trade) Dose Ordered Sig/Abby Route PRN Reason Start Time Stop Time Status Last Admin Dose Admin Acetaminophen (Tylenol) 650 mg Q4H PRN ORAL Prn Headache/Temp > 100.5 08/05/17 21:30 09/04/17 21:29 Albuterol/ Ipratropium (Albuterol/ Ipratropium) 3 ml Q4H PRN HHN Shortness of Breath 08/05/17 21:30 08/09/17 21:29 Amlodipine Besylate (Norvasc) 10 mg DAILY ORAL 08/06/17 09:00 09/04/17 08:59 Atorvastatin Calcium (Lipitor) 10 mg BEDTIME ORAL 08/05/17 21:30 09/03/17 21:29 08/05/17 21:37 Ceftriaxone Sodium 2 gm/ Sodium Chloride 55 ml @ 110 mls/hr EVERY 12 HOURS IVPB 08/05/17 21:00 08/12/17 20:59 08/06/17 10:07 Dextrose (Dextrose 50%) STAT PRN IV Hypoglycemia 08/05/17 21:30 09/04/17 21:29 Heparin Sodium (Porcine) (Heparin 5000 units/ml) 5,000 units EVERY 12 HOURS SUBQ 08/05/17 21:30 09/03/17 21:29 08/05/17 21:46 Lorazepam (Ativan 2mg/ml 1ml) 2 mg Q2H PRN IV For Anxiety 08/05/17 21:00 08/11/17 20:59 Morphine Sulfate (Morphine Sulfate) 4 mg Q4H PRN IVP Severe Pain (Pain Scale 7-10) 08/05/17 21:30 08/11/17 21:29 08/06/17 10:54 Ondansetron HCl (Zofran) 4 mg Q6H PRN IVP Nausea & Vomiting 08/05/17 21:30 09/04/17 21:29 Oseltamivir Phosphate (Tamiflu) 75 mg TWICE A DAY ORAL 08/06/17 09:00 08/10/17 15:59 Polyethylene Glycol (Miralax) 17 gm DAILYPRN PRN ORAL Constipation 08/05/17 21:00 09/04/17 20:59 Sodium Chloride 1,000 ml @ 50 mls/hr Q20H IV 08/05/17 21:30 09/03/17 21:29 08/05/17 21:37 Vancomycin HCl (Vanco rx to dose) 1 ea DAILY PRN MISC PRN RX TO DOSE PROTOCOL 08/05/17 21:00 09/04/17 20:59 Vancomycin HCl 1 gm/Dextrose 275 ml @ 183.3 mls/ hr Q12HR@1000,2200 IVPB 08/05/17 22:00 08/10/17 09:59 08/06/17 11:06 Ivelisse Bauman M.D. Aug 06, 2017 11:29
[2017-08-06 12:00] VITALS: BP 124/75
--- NOTE | 2017-08-06 15:19 | Pre-Procedure Note/Attestation ---
Pre-Procedure Note/Attestation Complete Prior to Procedure Planned Procedure: not applicable Procedure Narrative: image guided lumbar puncture Indications for Procedure Pre-Operative Diagnosis: meningitis Attestation I attest that I discussed the nature of the procedure; its benefits; risks and complications; and alternatives (and the risks and benefits of such alternatives ), prior to the procedure, with the patient (or the patient's legal advertising representative). I attest that, if there was a reasonable possibility of needing a blood transfusion, the patient (or the patient's legal advertising representative) was given the [facility] standardized written summary, pursuant to the Adryan Kurt Blood Safety Act ([place] Health and Safety Code # 1645, as amended). I attest that I re-evaluated the patient just prior to the surgery and that there has been no change in the patient's H&P, except as documented below: Yung Yeboah M.D. Aug 06, 2017 15:19
--- NOTE | 2017-08-06 15:28 | Diagnostic Imaging Report ---
Indication: Reason For Exam: INFECT Technique: Continuous helical CT scanning of the head was performed without intravenous contrast material. Axial and coronal 5 mm sections were generated. Radiation dose was minimized using automated exposure control Dose: Total Dose Length Product - DLP [address]10.[address] Dose Index - CTDIvol(s) 70.38 mGy. Comparison: 10/13/2016 Findings: The ventricular system is normal in size and configuration. There is no shift of midline structures. No abnormal extra-axial fluid collections are noted. There is no evidence of intracerebral bleeding. No other abnormal high or low density areas are noted within the brain. No skull fracture. No focal soft tissue solid/scalp hematoma. Mastoid air cells and imaged paranasal sinuses are clear. Imaged portions of the orbits grossly unremarkable. Impression: No evidence of acute intracranial hemorrhage, mass effect or cortical edema. MRI may be obtained for more sensitive evaluation as clinically indicated. The CT scanner at [facility] is accredited by the [employer] and the scans are performed using protocols designed to limit radiation exposure to as low as reasonably achievable to attain images of sufficient resolution adequate for diagnostic evaluation.
[2017-08-06 16:00] VITALS: BP 131/83
--- NOTE | 2017-08-06 16:19 | Neurology Progress Note ---
Objective Physical Exam Last Vital Signs Date Time Temp Pulse Resp B/P (MAP) Pulse Ox O2 Delivery O2 Flow Rate FiO2 08/06/17 12:00 98.8 78 20 124/75 97 08/06/17 07:40 Room Air 21 Laboratory Tests Test 08/06/17 09:30 08/06/17 13:30 08/06/17 15:59 White Blood Count 11.5 K/UL (4.8-10.8) H Red Blood Count 4.03 M/UL (4.70-6.10) L Hemoglobin 12.7 G/DL (14.2-18.0) L Hematocrit 37.6 % (42.0-52.0) L Mean Corpuscular Volume 93 FL (80-99) Mean Corpuscular Hemoglobin 31.4 PG (27.0-31.0) H Mean Corpuscular Hemoglobin Concent 33.7 G/DL (32.0-36.0) Red Cell Distribution Width 11.5 % (11.6-14.8) L Platelet Count 216 K/UL (150-450) Mean Platelet Volume 7.6 FL (6.5-10.1) Neutrophils (%) (Auto) 77.2 % (45.0-75.0) H Lymphocytes (%) (Auto) 13.0 % (20.0-45.0) L Monocytes (%) (Auto) 8.5 % (1.0-10.0) Eosinophils (%) (Auto) 0.5 % (0.0-3.0) Basophils (%) (Auto) 0.8 % (0.0-2.0) Sodium Level 138 MMOL/L (136-145) Potassium Level 4.1 MMOL/L (3.5-5.1) Chloride Level 102 MMOL/L (98-107) Carbon Dioxide Level 27 MMOL/L (21-32) Anion Gap 9 mmol/L (5-15) Blood Urea Nitrogen 10 mg/dL (7-18) Creatinine 1.1 MG/DL (0.55-1.30) Estimat Glomerular Filtration Rate > 60 mL/min (>60) Glucose Level 99 MG/DL (74-106) Calcium Level 8.8 MG/DL (8.5-10.1) Total Bilirubin 0.5 MG/DL (0.2-1.0) Aspartate Amino Transf (AST/SGOT) 37 U/L (15-37) Alanine Aminotransferase (ALT/SGPT) 44 U/L (12-78) Alkaline Phosphatase 98 U/L (46-116) C-Reactive Protein, Quantitative 22.2 mg/dL (0.00-0.90) H Total Protein 6.9 G/DL (6.4-8.2) Albumin 2.7 G/DL (3.4-5.0) L Globulin 4.2 g/dL Albumin/Globulin Ratio 0.6 (1.0-2.7) L Vancomycin Level Trough 5.8 ug/mL (5.0-12.0) HIV (1&2) Antibody Rapid Negative (NEGATIVE) Prothrombin Time 10.0 SEC (9.30-11.50) Prothromb Time International Ratio 1.0 (0.9-1.1) Activated Partial Thromboplast Time 34 SEC (23-33) H HIV-1 RNA (PCR) log10 Value Pending HIV-1 RNA Ultraquantitative (PCR) Pending CSF Appearance Pending CSF Color Pending CSF WBC Pending CSF RBC Pending CSF Neutrophils % Pending CSF Lymphocytes % Pending CSF Monocytes % Pending CSF Crenated Cells Pending CSF Glucose Pending CSF Total Protein Pending CSF VDRL Pending Impression/Recommendations Problems: (1) meningitis,viral (2) Influenza-like symptoms Status: unchanged Recommendations #[id number] MAXIMUS CARTER Aug 06, 2017 16:19
[2017-08-06] MEDS ORDERED: LORazepam Inj 2mg/ml 1ml IV PRN (17:00)
--- NOTE | 2017-08-06 18:56 | Pulmonology Progress Note ---
Assessment/Plan Problems: (1) Acute febrile illness (2) Viral syndrome Assessment/Plan CT head spinal tap fever decreasing continue abx, antiviral for now check labs in am Subjective ROS Limited/Unobtainable: No Constitutional: Reports: no symptoms HEENT: Repors: no symptoms Allergies: Coded Allergies: No Known Allergies (Unverified , 06/03/14) Objective Last 24 Hour Vital Signs Date Time Temp Pulse Resp B/P (MAP) Pulse Ox O2 Delivery O2 Flow Rate FiO2 08/06/17 16:44 81 129/91 08/06/17 16:00 97.0 81 20 131/83 97 08/06/17 12:00 98.8 78 20 124/75 97 08/06/17 08:00 98.3 99 20 97/62 96 08/06/17 07:40 94 16 Room Air 21 08/06/17 04:42 98.5 87 19 129/82 96 08/06/17 00:00 100.2 97 20 120/86 96 08/05/17 22:08 98.6 08/05/17 21:00 98.6 98 20 134/94 98 08/05/17 20:11 99.7 89 18 129/83 96 Room Air Intake and Output 08/05/17 08/06/17 19:00 07:00 Intake Total 1223.3 ml 926.6 ml Balance 1223.3 ml 926.6 ml Intake Oral 480 ml IV Total 743.3 ml 926.6 ml # Voids 4 1 General Appearance: WD/WN HEENT: normocephalic, atraumatic Respiratory/Chest: chest wall non-tender, lungs clear Cardiovascular: normal peripheral pulses, normal rate Abdomen: normal bowel sounds, soft, non tender Genitourinary: normal external genitalia Extremities: no clubbing Skin: no ulcers Microbiology Date/Time Source Procedure Growth Status 08/04/17 17:50 Blood Blood Culture - Preliminary NO GROWTH AFTER 24 HOURS Resulted 08/04/17 17:40 Blood Blood Culture - Preliminary NO GROWTH AFTER 24 HOURS Resulted 08/05/17 14:30 Nasopharynx Influenza Types A,B Antigen (NANCY) - Final Complete 08/04/17 16:35 Nasal Nares Influenza Types A,B Antigen (NANCY) - Final Complete Laboratory Tests 08/06/17 09:30: White Blood Count 11.5H, Red Blood Count 4.03L, Hemoglobin 12.7L, Hematocrit 37.6L, Mean Corpuscular Volume 93, Mean Corpuscular Hemoglobin 31.4H, Mean Corpuscular Hemoglobin Concent 33.7, Red Cell Distribution Width 11.5L, Platelet Count 216, Mean Platelet Volume 7.6, Neutrophils (%) (Auto) 77.2H, Lymphocytes (%) (Auto) 13.0L, Monocytes (%) (Auto) 8.5, Eosinophils (%) (Auto) 0.5, Basophils (%) (Auto) 0.8, Sodium Level 138, Potassium Level 4.1, Chloride Level 102, Carbon Dioxide Level 27, Anion Gap 9, Blood Urea Nitrogen 10, Creatinine 1.1, Estimat Glomerular Filtration Rate > 60, Glucose Level 99, Calcium Level 8.8, Total Bilirubin 0.5, Aspartate Amino Transf (AST/SGOT) 37, Alanine Aminotransferase (ALT/SGPT) 44, Alkaline Phosphatase 98, C-Reactive Protein, Quantitative 22.2H, Total Protein 6.9, Albumin 2.7L, Globulin 4.2, Albumin/Globulin Ratio 0.6L, Vancomycin Level Trough 5.8, HIV (1&2) Antibody Rapid Negative 08/06/17 13:30: Prothrombin Time 10.0, Prothromb Time International Ratio 1.0, Activated Partial Thromboplast Time 34H, HIV-1 RNA (PCR) log10 Value [Pending], HIV-1 RNA Ultraquantitative (PCR) [Pending] 08/06/17 15:59: CSF Appearance [Pending], CSF Color [Pending], CSF WBC [Pending], CSF RBC [ Pending], CSF Neutrophils % [Pending], CSF Lymphocytes % [Pending], CSF Monocytes % [Pending], CSF Crenated Cells [Pending], CSF Glucose 71, CSF Total Protein 28, CSF VDRL [Pending] Current Medications Medications (Trade) Dose Ordered Sig/Abby Route PRN Reason Start Time Stop Time Status Last Admin Dose Admin Acetaminophen (Tylenol) 650 mg Q4H PRN ORAL Prn Headache/Temp > 100.5 08/05/17 21:30 09/04/17 21:29 Albuterol/ Ipratropium (Albuterol/ Ipratropium) 3 ml Q4H PRN HHN Shortness of Breath 08/05/17 21:30 08/09/17 21:29 Amlodipine Besylate (Norvasc) 10 mg DAILY ORAL 08/06/17 09:00 09/04/17 08:59 08/06/17 16:44 Atorvastatin Calcium (Lipitor) 10 mg BEDTIME ORAL 08/05/17 21:30 09/03/17 21:29 08/05/17 21:37 Ceftriaxone Sodium 2 gm/ Sodium Chloride 55 ml @ 110 mls/hr EVERY 12 HOURS IVPB 08/05/17 21:00 08/12/17 20:59 08/06/17 10:07 Cyclobenzaprine HCl (Flexeril) 10 mg THREE TIMES A DAY ORAL 08/06/17 18:00 09/05/17 17:59 Dextrose (Dextrose 50%) STAT PRN IV Hypoglycemia 08/05/17 21:30 09/04/17 21:29 Heparin Sodium (Porcine) (Heparin 5000 units/ml) 5,000 units EVERY 12 HOURS SUBQ 08/05/17 21:30 09/03/17 21:29 08/05/17 21:46 Lorazepam (Ativan 2mg/ml 1ml) 2 mg Q2H PRN IV For Anxiety and Insomnia 08/06/17 17:00 08/13/17 16:59 Morphine Sulfate (Morphine Sulfate) 6 mg Q4H PRN IVP Severe Pain (Pain Scale 7-10) 08/06/17 15:00 08/13/17 14:59 08/06/17 16:46 Ondansetron HCl (Zofran) 4 mg Q6H PRN IVP Nausea & Vomiting 08/05/17 21:30 09/04/17 21:29 Oseltamivir Phosphate (Tamiflu) 75 mg TWICE A DAY ORAL 08/06/17 09:00 08/10/17 15:59 Polyethylene Glycol (Miralax) 17 gm DAILYPRN PRN ORAL Constipation 08/05/17 21:00 09/04/17 20:59 Sodium Chloride 1,000 ml @ 50 mls/hr Q20H IV 08/05/17 21:30 09/03/17 21:29 08/05/17 21:37 Vancomycin HCl (Vanco rx to dose) 1 ea DAILY PRN MISC PRN RX TO DOSE PROTOCOL 08/05/17 21:00 09/04/17 20:59 Vancomycin HCl 1 gm/Dextrose 275 ml @ 183.3 mls/ hr Q8HR@0400,1200,2000 IVPB 08/06/17 20:00 08/11/17 19:59 VIVIANA TABARES Aug 06, 2017 18:56
[2017-08-06] MEDS: Cyclobenzaprine 10mg Tab ORAL SCH (19:14)
[2017-08-06 20:00] VITALS: BP 133/87
[2017-08-07] VITALS: BP 117/81
[2017-08-07] MEDS: Vancomycin 1 GM in D5W 275 ML IVPB SCH (03:39)
[2017-08-07] MEDS: Morphine Sulfate 4mg/ml Inj IVP PRN ×2 (03:40→08:34)
[2017-08-07 04:00] VITALS: BP 117/83
--- NOTE | 2017-08-07 07:58 | Pulmonology Progress Note ---
Assessment/Plan Assessment/Plan ASSESSMENT Acute febrile illness Likely viral syndrome probably influenza headache, AKHIL -resolved HTN PLAN OF CARE MS floor isolation for now ID follows empiric abx influenza x 2, negative, blood cx prel negative CXR negative HIV test-negative, WN serology, RSV Ag P LP with CSF analysis - done 08/06, unremarkable CSF analysis, unlikely bacterial, CSF cx negative CT head no acute IC pathology O2 HN prn BP management with CCB, stable DVT prophylaxis patient wants to go home sinal tab non diagnostic for bacterial infection leuk resolved, afebrile still with headache, but no signs suggestive of meningitis discussed with ID, per ID likely influenza and will need to complete total 7 days of course with Tamiflu (rapid influenza screen test was negative, but sensitivity only 60-70% ) dc today instruct patient if symptoms worsened or not resolved in few days go to the nearest ER case discussed and evaluated by supervising physician Subjective Allergies: Coded Allergies: No Known Allergies (Unverified , 06/03/14) Subjective fever at midnight, leuk resolved still [place] , no n/v/ photophobia, no neck pain Objective Last 24 Hour Vital Signs Date Time Temp Pulse Resp B/P (MAP) Pulse Ox O2 Delivery O2 Flow Rate FiO2 08/07/17 04:00 98.6 77 20 117/83 96 08/07/17 00:00 98.2 97 20 117/81 97 08/06/17 20:00 98.7 88 20 133/87 97 08/06/17 19:11 84 16 Room Air 21 08/06/17 16:44 81 129/91 08/06/17 16:00 Room Air 08/06/17 16:00 97.0 81 20 131/83 97 08/06/17 12:00 98.8 78 20 124/75 97 08/06/17 12:00 Room Air 08/06/17 08:00 98.3 99 20 97/62 96 08/06/17 08:00 Room Air Intake and Output 08/06/17 08/07/17 19:00 07:00 Intake Total 457 ml 1001.6 ml Balance 457 ml 1001.6 ml IV Total 457 ml 1001.6 ml # Voids 3 3 General Appearance: no acute distress HEENT: normocephalic, atraumatic, anicteric, mucous membranes moist, PERRL Respiratory/Chest: chest wall non-tender, normal breath sounds, no respiratory distress, no accessory muscle use Cardiovascular: normal peripheral pulses, normal rate, regular rhythm, no JVD Abdomen: normal bowel sounds, soft, non tender, non distended Extremities: no edema Skin: no rash Neurologic/Psychiatric: neurology stroke physician II-XII grossly normal, no motor/sensory deficits, alert, oriented x 3, responsive Lymphatic: no neck adenopathy Musculoskeletal: normal muscle bulk Microbiology Date/Time Source Procedure Growth Status 08/04/17 17:50 Blood Blood Culture - Preliminary NO GROWTH AFTER 48 HOURS Resulted 08/04/17 17:40 Blood Blood Culture - Preliminary NO GROWTH AFTER 48 HOURS Resulted 08/05/17 14:30 Nasopharynx Influenza Types A,B Antigen (NANCY) - Final Complete 08/04/17 16:35 Nasal Nares Influenza Types A,B Antigen (NANCY) - Final Complete Laboratory Tests 08/06/17 09:30: White Blood Count 11.5H, Red Blood Count 4.03L, Hemoglobin 12.7L, Hematocrit 37.6L, Mean Corpuscular Volume 93, Mean Corpuscular Hemoglobin 31.4H, Mean Corpuscular Hemoglobin Concent 33.7, Red Cell Distribution Width 11.5L, Platelet Count 216, Mean Platelet Volume 7.6, Neutrophils (%) (Auto) 77.2H, Lymphocytes (%) (Auto) 13.0L, Monocytes (%) (Auto) 8.5, Eosinophils (%) (Auto) 0.5, Basophils (%) (Auto) 0.8, Sodium Level 138, Potassium Level 4.1, Chloride Level 102, Carbon Dioxide Level 27, Anion Gap 9, Blood Urea Nitrogen 10, Creatinine 1.1, Estimat Glomerular Filtration Rate > 60, Glucose Level 99, Calcium Level 8.8, Total Bilirubin 0.5, Aspartate Amino Transf (AST/SGOT) 37, Alanine Aminotransferase (ALT/SGPT) 44, Alkaline Phosphatase 98, C-Reactive Protein, Quantitative 22.2H, Total Protein 6.9, Albumin 2.7L, Globulin 4.2, Albumin/Globulin Ratio 0.6L, Vancomycin Level Trough 5.8, HIV (1&2) Antibody Rapid Negative 08/06/17 13:30: Prothrombin Time 10.0, Prothromb Time International Ratio 1.0, Activated Partial Thromboplast Time 34H, HIV-1 RNA (PCR) log10 Value [Pending], HIV-1 RNA Ultraquantitative (PCR) [Pending] 08/06/17 15:59: CSF Appearance Clear, CSF Color Colorless, CSF WBC 0, CSF RBC 70, CSF Neutrophils % , CSF Lymphocytes % , CSF Monocytes % , CSF Crenated Cells 0, CSF Glucose 71, CSF Total Protein 28, CSF VDRL [Pending] Current Medications Medications (Trade) Dose Ordered Sig/Abby Route PRN Reason Start Time Stop Time Status Last Admin Dose Admin Acetaminophen (Tylenol) 650 mg Q4H PRN ORAL Prn Headache/Temp > 100.5 08/05/17 21:30 09/04/17 21:29 Albuterol/ Ipratropium (Albuterol/ Ipratropium) 3 ml Q4H PRN HHN Shortness of Breath 08/05/17 21:30 08/09/17 21:29 Amlodipine Besylate (Norvasc) 10 mg DAILY ORAL 08/06/17 09:00 09/04/17 08:59 08/06/17 16:44 Atorvastatin Calcium (Lipitor) 10 mg BEDTIME ORAL 08/05/17 21:30 09/03/17 21:29 08/06/17 21:00 Ceftriaxone Sodium 2 gm/ Sodium Chloride 55 ml @ 110 mls/hr EVERY 12 HOURS IVPB 08/05/17 21:00 08/12/17 20:59 08/06/17 22:38 Cyclobenzaprine HCl (Flexeril) 10 mg THREE TIMES A DAY ORAL 08/06/17 18:00 09/05/17 17:59 08/06/17 19:14 Dextrose (Dextrose 50%) STAT PRN IV Hypoglycemia 08/05/17 21:30 09/04/17 21:29 Heparin Sodium (Porcine) (Heparin 5000 units/ml) 5,000 units EVERY 12 HOURS SUBQ 08/05/17 21:30 09/03/17 21:29 08/06/17 21:00 Lorazepam (Ativan 2mg/ml 1ml) 2 mg Q2H PRN IV For Anxiety and Insomnia 08/06/17 17:00 08/13/17 16:59 Morphine Sulfate (Morphine Sulfate) 6 mg Q4H PRN IVP Severe Pain (Pain Scale 7-10) 08/06/17 15:00 08/13/17 14:59 08/07/17 03:40 Ondansetron HCl (Zofran) 4 mg Q6H PRN IVP Nausea & Vomiting 08/05/17 21:30 09/04/17 21:29 Oseltamivir Phosphate (Tamiflu) 75 mg TWICE A DAY ORAL 08/06/17 09:00 08/10/17 15:59 08/06/17 19:16 Polyethylene Glycol (Miralax) 17 gm DAILYPRN PRN ORAL Constipation 08/05/17 21:00 09/04/17 20:59 Sodium Chloride 1,000 ml @ 50 mls/hr Q20H IV 08/05/17 21:30 09/03/17 21:29 08/06/17 19:17 Vancomycin HCl (Vanco rx to dose) 1 ea DAILY PRN MISC PRN RX TO DOSE PROTOCOL 08/05/17 21:00 09/04/17 20:59 Vancomycin HCl 1 gm/Dextrose 275 ml @ 183.3 mls/ hr Q8HR@0400,1200,2000 IVPB 08/06/17 20:00 08/11/17 19:59 08/07/17 03:39 Shad AsifLinda morales NP Aug 07, 2017 07:58
[2017-08-07 08:10] VITALS: BP 115/76
[2017-08-07] MEDS: cefTRIAXone 2 GM in NS 55 ML IVPB SCH (08:33)
[2017-08-07] MEDS: Cyclobenzaprine 10mg Tab ORAL SCH ×2 (08:34→13:00)
[2017-08-07] MEDS: Heparin 5000 units/ml inj SUBQ SCH (08:35)
[2017-08-07] MEDS: Oseltamivir 75mg cap ORAL SCH (08:36)
[2017-08-07 08:50] LABS: BASOPHILS % (AUTO) 1.1 % (0.0-2.0); EOSINOPHILS % (AUTO) 1.2 % (0.0-3.0); HEMATOCRIT 39.5 % (42.0-52.0); HEMOGLOBIN 13.1 G/DL (14.2-18.0); LYMPHOCYTES % (AUTO) 17.7 % (20.0-45.0); MEAN CORPUSCULAR VOLUME 94 FL (80-99); MONOCYTES % (AUTO) 8.3 % (1.0-10.0); NEUTROPHILS % (AUTO) 71.8 % (45.0-75.0); PLATELET COUNT 232 K/UL (150-450); RED BLOOD COUNT 4.22 M/UL (4.70-6.10); RED CELL DISTRIBUTION WIDTH 11.5 % (11.6-14.8); WHITE BLOOD COUNT 8.6 K/UL (4.8-10.8)
[2017-08-07 09:04] LABS: ALANINE AMINOTRANSFERASE 49 U/L (12-78); ALBUMIN 2.6 G/DL (3.4-5.0); ALBUMIN/GLOBULIN RATIO 0.5 (1.0-2.7); ALKALINE PHOSPHATASE 107 U/L (46-116); ANION GAP 11 mmol/L (5-15); ASPARTATE AMINO TRANSFERASE 37 U/L (15-37); BILIRUBIN,TOTAL 0.3 MG/DL (0.2-1.0); BLOOD UREA NITROGEN 9 mg/dL (7-18); CALCIUM 8.9 MG/DL (8.5-10.1); CARBON DIOXIDE 26 MMOL/L (21-32); CHLORIDE 102 MMOL/L (98-107); CREATININE 1.1 MG/DL (0.55-1.30); PHOSPHORUS 3.7 MG/DL (2.5-4.9); POTASSIUM 3.5 MMOL/L (3.5-5.1); SODIUM 139 MMOL/L (136-145)
[2017-08-07] MEDS ORDERED: Morphine Sulfate 4mg/ml Inj IVP ONE (10:45)
[2017-08-07] MEDS ORDERED: TAMIFLU75 MG ORAL (12:05)
[2017-08-07 12:15] VITALS: BP 126/92
--- NOTE | 2017-08-07 12:56 | Consultation ---
DATE OF CONSULTATION: 08/06/2017 NEUROLOGICAL CONSULTATION CONSULTING PHYSICIAN: Shukri Salvador M.D. REQUESTING PHYSICIAN: Olegario Macias M.D. HISTORY OF PRESENT ILLNESS: This is a 52-year-old man seen in neurological consultation to evaluate new onset of intractable headache. According to the patient, he was doing fairly well until last Thursday, on 08/02/2017 at the family gathering, he started to feel slight generalized weakness. Then later on, he started to develop progressive excruciating severe headache, went home where the fever was 101 degrees. Following day, temperature was 102. Headache was continuous, persistent, diffuse, sharp shooting, accompanied by body aches, nausea, and vomiting. The patient indicated that the headache "worsening his life." Symptoms were not improving and on 08/04/2017, he was sent into emergency room complaining of having fevers, chills, and episodes of nausea and vomiting as well as gait instability and dizziness when getting up. There was no other associated symptomatology. He reported of some nasal congestion and cough, intermittently nonproductive. His vital signs included temperature 102.6, blood pressure 132/83, [place] coma scale was 15. His initial diagnostic studies included a chest x-ray that revealed no acute process. His laboratory work included CBC study with WBC 18.5. Normal coagulation panel. Urinalysis with 1+ ketones and 1+ leukocyte esterase. Toxicology is negative. Chemistry panel, elevated creatinine 1.5, GFR 59.4, glucose 107. Elevated alkaline phosphatase of 118 and CPK of 314, but normal troponin. 2.2. Low albumin 3.3. HIV test was negative. Following admission until present, his condition remained essentially unchanged. His vital signs are somewhat improved. At this time, his temperature is down to 100.2 degrees and now he is afebrile. Blood pressure fluctuating down to 97/62. CAT scan of the brain was obtained. This was negative. The patient had a spinal tap. The patient just returned from Radiology Department. PAST MEDICAL HISTORY: The patient has a history of well-controlled hypertension. He has a history of right shoulder surgery few months ago, well tolerated, history of shaking "teeth," but no root canals recent. History of hyperlipidemia. MEDICATIONS: The patient's treatment following admission included IV fluids, Rocephin, vancomycin, amlodipine, Lipitor, albuterol, subcutaneous heparin, Ativan p.r.n., Zofran p.r.n., Tamiflu, and MiraLAX. ALLERGIES: None reported. 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 No alcohol. No drug abuse. Nonsmoker. Currently, lives with his sister. FAMILY HISTORY: Noncontributory. REVIEW OF SYSTEMS: The patient denies recent foreign travels. No tooth work. No source of infection known. Currently severe dull headaches, burning sensation on touching the vertex region. No visual and no hearing abnormalities. Occasional nausea, generalized weakness. No chest pain. No palpitations. No respiratory problems. No abdominal pain or discomfort. The patient had an "inability" to sleep last couple of days. PHYSICAL EXAMINATION: GENERAL: This is a well-developed, well-nourished man, not in acute distress, lying comfortably in bed, head down. VITAL SIGNS: Stable. Temperature 98.8 degrees, blood pressure 124/75. HEENT: Head is normocephalic. No evidence of trauma. NECK: Supple. No meningeal signs. MUSCULOSKELETAL: Unremarkable. There is no deformities. Peripheral pulses 1+ symmetric. SKIN: No rash. No petechia. MENTAL STATUS: He is fully alert and oriented x3 with no evidence of aphasia or apraxia. Cognitive function normal. CRANIAL NERVE II: Pupils both responding to light and accommodation. Extraocular movements intact. No nystagmus. CRANIAL NERVE V: Normal corneal responses. CRANIAL NERVE VII: No facial asymmetry. CRANIAL NERVE VIII: Normal hearing. CRANIAL NERVES IX THROUGH XII: Within normal limit. MOTOR EXAMINATION: Normal muscle tone and strength 5/5 in all extremities. No involuntary movement. Deep reflexes 1+ symmetric with downgoing toes on both sides. SENSORY EXAMINATION: Normal to pinprick and light touch. GAIT: Slow, but stable. IMPRESSION: 1. Acute onset of viral syndrome, now presenting with intractable headache and nausea. Rule out a viral, nonbacterial meningitis. 2. Hypertension. 3. Hyperlipidemia. RECOMMENDATIONS: Check CSF study. Start on acyclovir IV. CSF for West Nile virus, HSV 1 and 2, viral encephalitis panel, culture and sensitivity, and cell count. Start on pain management, IV Dilaudid, tramadol p.r.n. Sedation at nighttime for proper sleep. Adjust treatment upon completion of CSF studies. Thank you for allowing me to see this interesting patient in neurological consultation. Shukri Salvador M.D. DR: Ana JOB#: [id number] CC:
[2017-08-07] MEDS ORDERED: Tubing IV Secondary IV ONE ×2 (14:43)
[2017-08-07] MEDS ORDERED: 1/2 NS 1000ml IV ONE (14:43)
--- NOTE | 2017-08-07 15:47 | Infectious Diseases Prog Note ---
Assessment/Plan Assessment/Plan Assessment: Viral syndrome- high suspicion for Influenza despite rapid test. r/o bacteremia , r/o Acute HIV -HIV ab (rapid screen) neg; VL p Fever/leukocytosis- resolved -CXR: : No acute process -u/a WBC 2-4, nit -, leuk +1 -Bcx NTD Headache- no meningismus signs, however severe and persistent- suspect meningitis (likely aseptic, however suspicion for bacterial process) -CT head: No evidence of acute intracranial hemorrhage, mass effect or cortical edema. MRI may be obtained for more sensitive evaluation as clinically indicated. -s/p LP 08/06: CSF WBC 0, gluc 71, prot 28, CSF stain neg, cx NTD HTN Plan: -Continue empiric Tamiflu #3/; ok to discharge on this regimen with strict return precautions -D/c empiric IV Vanco #4 and Ceftriaxone abx d#4 pending Bcx and CSF profile; may d/c in 24-48hrs pending cx -08/05 SP Cefepime #2 -08/04 SP Unasyn x1 -f/u HIV VL, CSF VDRL -f/u final cx -Monitor CBC/CMP, temperatures -supportive treatment/pain control per PCP Thank you for this consultation. Will continue to follow along with you. Discussed with RN and primary team. Subjective Allergies: Coded Allergies: No Known Allergies (Unverified , 06/03/14) Subjective afebrile in 36hrs leukocytosis resolved [place] persistent but improved s/p LP, CSF normal Objective Vital Signs Last 24 Hour Vital Signs Date Time Temp Pulse Resp B/P (MAP) Pulse Ox O2 Delivery O2 Flow Rate FiO2 08/07/17 12:15 97.8 95 22 126/92 99 Room Air 08/07/17 11:19 98.6 08/07/17 09:33 98.6 08/07/17 08:33 85 115/76 08/07/17 08:10 98.6 85 21 115/76 99 Room Air 08/07/17 07:41 85 18 Room Air 21 08/07/17 04:00 98.6 77 20 117/83 96 08/07/17 00:00 98.2 97 20 117/81 97 08/06/17 20:00 98.7 88 20 133/87 97 08/06/17 19:11 84 16 Room Air 21 08/06/17 16:44 81 129/91 08/06/17 16:00 Room Air 08/06/17 16:00 97.0 81 20 131/83 97 Height (Feet): 5 Height (Inches): 10.00 Weight (Pounds): 170 Objective not done as patient already discharged Microbiology Date/Time Source Procedure Growth Status 08/04/17 17:50 Blood Blood Culture - Preliminary NO GROWTH AFTER 48 HOURS Resulted 08/04/17 17:40 Blood Blood Culture - Preliminary NO GROWTH AFTER 48 HOURS Resulted 08/06/17 15:59 Cerebral Spinal Fluid Gram Stain - Final Resulted 08/06/17 15:59 Cerebral Spinal Fluid CSF Culture - Preliminary NO GROWTH AFTER 24 HOURS Resulted 08/05/17 14:30 Nasopharynx Influenza Types A,B Antigen (NANCY) - Final Complete 08/04/17 16:35 Nasal Nares Influenza Types A,B Antigen (NANCY) - Final Complete Laboratory Tests Test 08/06/17 15:59 08/07/17 08:15 CSF Appearance Clear CSF Color Colorless CSF WBC 0 /CU MM (0-5) CSF RBC 70 /CU MM CSF Neutrophils % % CSF Lymphocytes % % CSF Monocytes % % CSF Crenated Cells 0 % CSF Glucose 71 mg/dL (50-80) CSF Total Protein 28 MG/DL (15-45) CSF VDRL Pending White Blood Count 8.6 K/UL (4.8-10.8) Red Blood Count 4.22 M/UL (4.70-6.10) L Hemoglobin 13.1 G/DL (14.2-18.0) L Hematocrit 39.5 % (42.0-52.0) L Mean Corpuscular Volume 94 FL (80-99) Mean Corpuscular Hemoglobin 30.9 PG (27.0-31.0) Mean Corpuscular Hemoglobin Concent 33.1 G/DL (32.0-36.0) Red Cell Distribution Width 11.5 % (11.6-14.8) L Platelet Count 232 K/UL (150-450) Mean Platelet Volume 7.4 FL (6.5-10.1) Neutrophils (%) (Auto) 71.8 % (45.0-75.0) Lymphocytes (%) (Auto) 17.7 % (20.0-45.0) L Monocytes (%) (Auto) 8.3 % (1.0-10.0) Eosinophils (%) (Auto) 1.2 % (0.0-3.0) Basophils (%) (Auto) 1.1 % (0.0-2.0) Erythrocyte Sedimentation Rate 93 MM/HR (0-20) H Sodium Level 139 MMOL/L (136-145) Potassium Level 3.5 MMOL/L (3.5-5.1) Chloride Level 102 MMOL/L (98-107) Carbon Dioxide Level 26 MMOL/L (21-32) Anion Gap 11 mmol/L (5-15) Blood Urea Nitrogen 9 mg/dL (7-18) Creatinine 1.1 MG/DL (0.55-1.30) Estimat Glomerular Filtration Rate > 60 mL/min (>60) Glucose Level 107 MG/DL (74-106) H Calcium Level 8.9 MG/DL (8.5-10.1) Phosphorus Level 3.7 MG/DL (2.5-4.9) Magnesium Level 1.8 MG/DL (1.8-2.4) Total Bilirubin 0.3 MG/DL (0.2-1.0) Aspartate Amino Transf (AST/SGOT) 37 U/L (15-37) Alanine Aminotransferase (ALT/SGPT) 49 U/L (12-78) Alkaline Phosphatase 107 U/L (46-116) C-Reactive Protein, Quantitative 18.2 mg/dL (0.00-0.90) H Total Protein 7.5 G/DL (6.4-8.2) Albumin 2.6 G/DL (3.4-5.0) L Globulin 4.9 g/dL Albumin/Globulin Ratio 0.5 (1.0-2.7) Ivelisse Davalos M.D. Aug 07, 2017 15:47
--- NOTE | 2017-08-10 10:08 | Discharge Summary ---
Discharge Summary Hospital Course Date of Admission Aug 04, 2017 at 18:05 Date of Discharge Aug 07, 2017 at 14:44 Admitting Diagnosis acute febrile illness HPI Easton Ho is a 52 year old male who was admitted on Aug 04, 2017 at 18:05 for Acute Febrile Illness Hospital Course dc summary #[id number] Discharge Medications New Medications: Oseltamivir Phosphate (Tamiflu) 75 Mg Capsule 75 MG ORAL TWICE A DAY, #10 CAP Continued Medications: Amlodipine Besylate (Norvasc) 10 Mg Tab 10 MG ORAL DAILY, TAB Atorvastatin Calcium* (Lipitor*) 10 Mg Tablet 10 MG ORAL BEDTIME, TAB Ibuprofen* (Motrin*) 600 Mg Tablet 600 MG ORAL THREE TIMES A DAY for pain, body aches for 7 Days, #30 TAB 0 Refills Discontinued Medications: Oseltamivir Phosphate (Tamiflu) 75 Mg Capsule 75 MG ORAL TWICE A DAY for 5 Days, #10 CAP Discharge Condition Upon Discharge: stable Discharge Disposition Patient was discharged to Home (01) Discharge Diagnoses: Shad (Luis)Linda NP Aug 10, 2017 10:08
--- NOTE | 2017-08-11 07:00 | Discharge Summary 2 SIG ---
DATE OF ADMISSION: 08/04/2017 DATE OF DISCHARGE: 08/07/2017 REASON FOR ADMISSION: 52-year-old male with history of hypertension, presented to emergency department complaining of fever, chills, and multiple episodes of vomiting. He reported severe headache, but denied neck pain, stiffness, or photophobia. He reported mild cramping epigastric pain during the episodes of vomiting. The patient did not have any appreciable cough, however, was coughing intermittently, and cough was nonproductive. Upon evaluation in the emergency room, the patient was found to have a fever - 102.6 degrees, tachycardia -122. White blood count -18.5, stable hemoglobin and hematocrit, stable platelet count. Urinalysis with +1 leukocyte esterase and few bacteria. BUN -12 and creatinine- 1.5. Troponin negative. Lactic acid -1.1. Influenza screen was negative. The patient was admitted with acute febrile illness and viral syndrome. HOSPITAL COURSE: The patient was admitted. Initially ID consult was requested, but due to the persistent headache, neurology consult was requested immediately as well. The patient was on isolation. The patient was on empiric antibiotics and with a high suspicion for influenza despite negative rapid influenza test. Since rapid test has a sensitivity only about 60% as per ID, the patient was on empiric Tamiflu. Blood cultures were negative. Chest x-ray revealed no acute cardiopulmonary pathology. HIV test, West Nile virus serology came back negative. Neurologist recommended lumbar puncture due to possible viral meningitis. The patient undergone lumbar puncture with cerebrospinal fluid analysis. Per CSF analysis , unlikely bacterial source. CSF culture was negative. CT of head revealed no acute intracranial pathology. Supplemental oxygen provided as needed to keep pulse oximetry above 92%. Pulmonary toilet was on standby. Blood pressure was managed with calcium-channel leodan and was stable. DVT prophylaxis provided. Leukocytosis initially present, resolved. Sputum culture negative. Renal parameters improved: creatinine down from 1.5 to 1.1. Per ID, the patient likely had influenza and will need to complete total 7 days course with Tamiflu. Leukocytosis resolved, afebrile. The patient was stable for discharge. FINAL DIAGNOSES: 1. Acute febrile illness, 2. Likely viral syndrome, 3. Probably influenza. 4. Headaches. 5. Possible viral meningitis. 6. Acute kidney injury, resolved. 7. Hypertension. DISCHARGE MEDICATIONS: See medication reconciliation list. Prescription provided for Tamiflu to complete the course as recommended by ID. DISCHARGE INSTRUCTIONS: The patient was discharged home. Follow up with the primary medical doctor. Headaches improved prior to discharge and controlled with analgesic. The patient was instructed, should headache return and uncontrolled, go back to the emergency department. Olegario Macias M.D. Linda KinneyOur Lady Of Lourdes Memorial HospitalChetna NBowen DR: Christ JOB#: [id number] CC: PATO
--- NOTE | 2017-08-11 11:40 | Diagnostic Imaging Report ---
APPROVED REPORT CPT Code: 94449 Present Symptoms Comments: R/O DVT BILATERAL: Imaging reveals a patent deep venous system bilaterally. There is no evidence of thrombus within the femoral, popliteal or tibial segments. The greater saphenous veins are also within normal limits. Doppler indicates normal spontaneous flow within these segments.
--- NOTE | 2017-08-26 15:31 | Diagnostic Imaging Report ---
Indication: Meningitis Findings: After the indications, procedure, risks, complications, and alternatives of the procedure were explained, written informed consent was obtained. The lower back was prepped and draped in standard sterile fashion.1% lidocaine was used to anesthetize the skin. Using fluoroscopic guidance, 22-gauge spinal needle was advanced into the spinal canal at the level of L3. CSF was removed and sent for requested diagnostic studies. There were no complications. Patient tolerated the procedure well. Total fluoroscopy time 0.7 minutes. Impression: Technically successful lumbar puncture.
== END 2017-08-07 14:44 | disposition home or self-care (01) | DRG 113 ==
LOC: EMR 16:30 → 2E 18:05 → EDBEDREQ 18:10 → 2E 23:03 → 4E 08-05 20:38
PROC: 009U3ZX Drainage of Spinal Canal, Percutaneous Approach, Diagnostic (ICD-10-PCS; principal; 2017-08-06)
DX: J11.1 Influenza due to unidentified influenza virus with other respiratory manifestations (principal); N17.9 Acute kidney failure, unspecified; A87.9 Viral meningitis, unspecified; I10 Essential (primary) hypertension; R51 Headache; E78.5 Hyperlipidemia, unspecified
CPT/HCPCS: 36415; 70450; 71045; 80053; 80069; 80202; 81003; 82550; 82945; 83605; 83735; 84100; 84157; 84484; 85025; 85610; 85651; 85730; 86140; 86592; 86703; 86710; 86790; 87040; 87070; 87205; 87420; 87536; 89051; 93005; 93970; 94664; 99285; J2405

== ENCOUNTER 2018-05-11 22:23 | Emergency (ER) | payer MEDICAID, OTHER ==
[~2018-05-11] VITALS: Ht 177.8 cm; Wt 83.9 kg
[2018-05-11 23:08] VITALS: BP 133/90
--- NOTE | 2018-05-11 23:10 | Emergency Room Report ---
History of Present Illness General Chief Complaint: General Complaint Source: Patient Present Illness HPI Mr. Cary is a healthy 52-year-old male with history of hypertension. He has had rectal bleeding for the past 3 weeks. He wanted a clean bill of health before he moves to [place]. Physical examination is required to obtain visa. He denies any pain. No history of trauma in the area. Denies any pain or swelling area. Only medication Norvasc. Has had normal colonoscopy age 49 Allergies: Coded Allergies: No Known Allergies (Unverified , 06/03/14) Patient History Past Medical History: see triage record, HTN Past Surgical History: other - bilateral shoulder surgery Reviewed Nursing Documentation: PMH: Agreed; PSxH: Agreed Nursing Documentation-PMH Hx Cardiac Problems: No Hx Hypertension: Yes Hx Cancer: No Hx Gastrointestinal Problems: No Hx Neurological Problems: No Review of Systems Constitutional: Reports: no symptoms; Denies: fever, malaise Cardiovascular: Denies: chest pain Gastrointestinal: Denies: abdominal pain All Other Systems: negative except mentioned in HPI Physical Exam Vital Signs Date Time Temp Pulse Resp B/P (MAP) Pulse Ox O2 Delivery O2 Flow Rate FiO2 05/11/18 22:47 97.9 82 16 138/91 99 Room Air Sp02 EP Interpretation: reviewed, normal General Appearance: no apparent distress, alert, GCS 15, non-toxic, other - smiling pleasant jovial Head: normocephalic, atraumatic Eyes: bilateral eye normal inspection ENT: hearing grossly normal, normal pharynx, no angioedema, normal voice Neck: full range of motion, supple/symm/no masses Respiratory: chest non-tender, lungs clear, normal breath sounds, speaking full sentences Cardiovascular #1: regular rate, rhythm Gastrointestinal: normal bowel sounds, non tender, soft, non-distended, no guarding, no rebound Rectal: deferred - patient declinded Musculoskeletal: back normal, gait/station normal, normal range of motion, non- tender, calf tenderness Neurologic: alert, oriented x3, responsive, motor strength/tone normal, sensory intact, speech normal Psychiatric: judgement/insight normal, memory normal, mood/affect normal, no suicidal/homicidal ideation Skin: normal color, no rash, warm/dry, well hydrated Medical Decision Making Diagnostic Impression: Primary Impression: Rectal bleeding ER Course Mr. Cary presents with painless rectal bleeding for 3 weeks. No s/s of anemia. DDX: anal fissure, hemorrhoids, malignancy, AVM ONce given possibilities, patient desires to pursue outpatient workout dc'd in stable condition Last Vital Signs Date Time Temp Pulse Resp B/P (MAP) Pulse Ox O2 Delivery O2 Flow Rate FiO2 05/11/18 22:47 97.9 82 16 138/91 99 Room Air Status: unchanged Disposition: HOME, SELF-CARE Referrals: [facility],REFERRING (PCP) Kathryn Regan MD May 11, 2018 23:10
[2018-05-11 23:25] VITALS: BP 133/88
== END 2018-05-11 23:21 | disposition home or self-care (01) ==
LOC: EMR 22:46
DX: K62.5 Hemorrhage of anus and rectum (principal); I10 Essential (primary) hypertension
CPT/HCPCS: 99282

== ENCOUNTER 2018-08-31 22:27 | Emergency (ER) | payer MEDICAID, OTHER ==
[~2018-08-31] VITALS: Ht 177.8 cm; Wt 85.3 kg
--- NOTE | 2018-08-31 23:02 | NUR ---
ED Nurse Note: Patient walk in c/o chest pain that is worse with coughing since this morning. AO4. NAD. VSS. Blood collected; sent down to lab.
[2018-08-31 23:36] VITALS: BP 146/92
[2018-09-01] MEDS ORDERED: IBUPROFEN600 MG ORAL (00:58)
[2018-09-01] MEDS ORDERED: ZITHROMAX250 MG ORAL (00:58)
[2018-09-01 01:00] VITALS: BP 146/92
--- NOTE | 2018-09-01 01:00 | NUR ---
ED Nurse Note: Patient cleared cleared for discharge per ERMD. AO4. NAD. VSS. Patient given prescriptions and discharge instructions; verbalized understanding. ID removed. Patient ambulated steady out of ED with all belongings.
--- NOTE | 2018-09-01 10:50 | Diagnostic Imaging Report ---
Indication: S/P Comparison: 08/04/2017 A single view chest radiograph was obtained. Findings: Cardiomediastinal appearance is within normal limits for age. The lungs are clear. There are bilateral shoulder prosthetics. Pulmonary vascularity is appropriate. The diaphragmatic contour is smooth and costophrenic angles are sharp. No pleural effusions are identified. The bones are unremarkable. Impression: No acute findings
--- NOTE | 2018-09-04 17:42 | Emergency Room Report ---
History of Present Illness General Chief Complaint: Chest Pain Source: Patient Present Illness HPI Patient is a 53-year-old male presented after increased chest discomfort. Patient gradual onset of symptoms associated with some productive cough with yellow-green sputum. He reports having increased chest discomfort.Patient denies any fever. Allergies: Coded Allergies: No Known Allergies (Unverified , 06/03/14) Patient History Past Medical History: see triage record Reviewed Nursing Documentation: PMH: Agreed; PSxH: Agreed Nursing Documentation-PMH Past Medical History: No History, Except For Hx Cardiac Problems: No Hx Hypertension: Yes Hx Cancer: No Hx Gastrointestinal Problems: No Hx Neurological Problems: No Review of Systems All Other Systems: negative except mentioned in HPI Physical Exam Vital Signs Date Time Temp Pulse Resp B/P (MAP) Pulse Ox O2 Delivery O2 Flow Rate FiO2 08/31/18 22:44 98.6 95 18 146/92 100 Room Air Sp02 EP Interpretation: reviewed, normal General Appearance: normal inspection, well appearing, no apparent distress, alert, GCS 15 Head: atraumatic ENT: normal ENT inspection, hearing grossly normal, normal voice Neck: normal inspection, full range of motion, supple, no bony tend Respiratory: normal inspection, no respiratory distress, no retraction, no wheezing, crackles Cardiovascular #1: regular rate, rhythm, no edema Gastrointestinal: normal inspection, normal bowel sounds, non tender, soft, no guarding, no hernia Genitourinary: no CVA tenderness Musculoskeletal: normal inspection, back normal, normal range of motion Neurologic: normal inspection, alert, oriented x3, responsive, rehabilitation physician III-XII nml as tested, speech normal Psychiatric: normal inspection, judgement/insight normal, mood/affect normal Skin: normal inspection, normal color, no rash Medical Decision Making Diagnostic Impression: Primary Impression: Pneumonitis ER Course Patient presented for cough. Differential diagnosis included but was not limited to bronchitis, pneumonia, pulmonary embolism, pericarditis, asthma, foreign body. Patient has a benign exam and does not appear to require any further imaging or laboratory testing at this time. Influenza study was noted to be negative. Patient will be given prescription for azithromycin due to pneumonitis. Patient was given medications for symptomatic treatment.Patient was advised to be rechecked with his primary care physician 1-2 days. Last Vital Signs Date Time Temp Pulse Resp B/P (MAP) Pulse Ox O2 Delivery O2 Flow Rate FiO2 09/01/18 01:00 98.6 95 18 146/92 100 Room Air Status: improved Disposition: HOME, SELF-CARE Condition: Stable Scripts Ibuprofen* (MOTRIN*) 600 Mg Tablet 600 MG ORAL Q8H PRN for For Pain, #30 TAB 0 Refills Prov: Harman Hart MD 09/01/18 Azithromycin* (ZITHROMAX*) 250 Mg Tablet 250 MG ORAL DAILY, #6 TAB 0 Refills Take two tables once daily for 1 day, then one tablet once daily for 4 days. Prov: Harman Hart MD 09/01/18 Referrals: NON PHYSICIAN (PCP) Patient Instructions: Nonspecific Chest Pain Harman Hart MD Sep 04, 2018 17:42
== END 2018-09-01 01:00 | disposition home or self-care (01) ==
LOC: EMR 23:03
DX: J18.9 Pneumonia, unspecified organism (principal); I10 Essential (primary) hypertension
CPT/HCPCS: 71045; 86710; 99283

== ENCOUNTER 2018-10-19 21:16 | Emergency (ER) | payer MEDICAID ==
[~2018-10-19] VITALS: Ht 177.8 cm; Wt 83.0 kg
[~2018-10-19 21:16] MED LIST changes: +ZITHROMAX250 MG ORAL
--- NOTE | 2018-10-19 22:24 | NUR ---
ED Nurse Note: pt walked in c/o toothache on left bottom side since today 4 pm. pt airway intact, will cont monitor.
[2018-10-19 22:25] VITALS: BP 140/101
[2018-10-19] MEDS ORDERED: ACETAMINOPHEN-1 EAC1 ORAL (22:26)
--- NOTE | 2018-10-19 22:29 | Emergency Room Report ---
History of Present Illness General Chief Complaint: Toothache Source: Patient Present Illness HPI Patient is a 53-year-old male presented after increased left-sided dental pain. Patient reports having a dental procedure earlier in the day. He reports having worsening pain to the area. Patient state he had a root canal done at [facility]. Patient had this earlier in the day. He states he attempted to contact his dentist but was unsuccessful. Patient denies any fever. He reports having a severe pain unresponsive to ibuprofen. He denies any other locations of injury. Allergies: Coded Allergies: No Known Allergies (Unverified , 06/03/14) Patient History Past Medical History: see triage record Reviewed Nursing Documentation: PMH: Agreed; PSxH: Agreed Nursing Documentation-PMH Past Medical History: No History, Except For Hx Cardiac Problems: No Hx Hypertension: Yes Hx Cancer: No Hx Gastrointestinal Problems: No Hx Neurological Problems: No Review of Systems All Other Systems: negative except mentioned in HPI Physical Exam Vital Signs Date Time Temp Pulse Resp B/P (MAP) Pulse Ox O2 Delivery O2 Flow Rate FiO2 10/19/18 22:17 98.8 100 16 140/101 96 Room Air General Appearance: well appearing, no apparent distress, alert, GCS 15 Head: normocephalic, atraumatic ENT: hearing grossly normal, normal voice, other - poor dentition Neck: full range of motion, supple Respiratory: normal inspection, no respiratory distress, speaking full sentences Musculoskeletal: no calf tenderness Neurologic: normal gait Psychiatric: mood/affect normal Skin: no rash Medical Decision Making Diagnostic Impression: Primary Impression: Pain, dental ER Course Patient presented for dental pain. Differential diagnosis included but was not limited to trigeminal neuralgia, dental abscess, dry socket, osteomyelitis, nerve injury. The patient was noted to have a benign exam. There is no evidence of infection. The patient is advised to follow up with dentist in 1- 2 days. Patient is advised to return if any worsening condition or if any changes in status that are concerning. Patient given prescription for Tylenol with codeine Last Vital Signs Date Time Temp Pulse Resp B/P (MAP) Pulse Ox O2 Delivery O2 Flow Rate FiO2 10/19/18 22:25 98.8 98 16 140/101 96 Room Air Status: improved Disposition: HOME, SELF-CARE Condition: Stable Scripts Acetaminophen With Codeine (T#3) (TYLENOL #3 TAB*) Y Tab 1 TAB ORAL Q8H PRN for For Pain, #10 TAB Prov: Harman Hart MD 10/19/18 Patient Instructions: Dental Pain Harman Hart MD Oct 19, 2018 22:29
[2018-10-19] MEDS ORDERED: Lidocaine 2% Visc 15ml soln ORAL ONE (22:30)
[2018-10-19 22:42] VITALS: BP 138/98
--- NOTE | 2018-10-19 22:42 | NUR ---
ED Nurse Note: pt cleared to be d/c per ER provider, pt discharge and aftercare instruction provided w/ prescription, pt education done via discussion and handout, pt advised to follow up with pcp or return to ed if sx worsen or new sx develop, pt verbalized understanding and agrees with plan, vss, ambulatory w/steady gait, left w/ all belongings. Addendum: 10/19/18 at 2242 by JEFFY ED Nurse Note: pt cleared to be d/c per ER provider, pt discharge and aftercare instruction provided w/ prescription, pt education done via discussion and handout, pt advised to follow up with dentist or return to ed if sx worsen or new sx develop, pt verbalized understanding and agrees with plan, vss, ambulatory w/steady gait, left w/ all belongings.
[2018-10-19] MEDS ORDERED: Tylenol #3 tab (300mg/30mg) ORAL ONE (22:45)
[2018-10-20] MEDS ORDERED: LIDOCAINE VISC100 ML ORAL (01:39)
== END 2018-10-19 23:00 | disposition home or self-care (01) ==
LOC: EMR 22:53
DX: K08.89 Other specified disorders of teeth and supporting structures (principal); I10 Essential (primary) hypertension
CPT/HCPCS: 99282

== ENCOUNTER 2018-10-20 01:25 | Emergency (ER) | payer MEDICAID ==
[~2018-10-20] VITALS: Ht 177.8 cm; Wt 83.0 kg
[2018-10-20 01:37] VITALS: BP 160/107
--- NOTE | 2018-10-20 01:37 | NUR ---
ED Nurse Note: pt walked in c/o left lower toothache, pt reports he was in the ED earlier, pain medication didn't help except lidocaine. airway intact, will cont monitor.
[2018-10-20] MEDS ORDERED: LIDOCAINE VISC100 ML ORAL (01:39)
--- NOTE | 2018-10-20 01:43 | Emergency Room Report ---
History of Present Illness General Chief Complaint: Toothache Source: Patient Present Illness HPI Patient is a 53-year-old male recently seen by me for increased dental pain. Patient had recently had a root canal. He reports having continued pain to the area despite taking Tylenol with codeine. He reports having severe pain to his tooth. The left posterior molar. He reports having a root canal dentist yesterday earlier in the day.Patient denies any new symptoms but continues to have significant pain. Allergies: Coded Allergies: No Known Allergies (Unverified , 06/03/14) Patient History Past Medical History: see triage record Reviewed Nursing Documentation: PMH: Agreed; PSxH: Agreed Nursing Documentation-PMH Past Medical History: No History, Except For Hx Cardiac Problems: No Hx Hypertension: Yes Hx Cancer: No Hx Gastrointestinal Problems: No Hx Neurological Problems: No Review of Systems All Other Systems: negative except mentioned in HPI Physical Exam Vital Signs Date Time Temp Pulse Resp B/P (MAP) Pulse Ox O2 Delivery O2 Flow Rate FiO2 10/20/18 01:31 98.6 75 16 160/107 98 Room Air General Appearance: well appearing, no apparent distress, alert, GCS 15 Head: normocephalic, atraumatic ENT: hearing grossly normal, normal voice Neck: full range of motion, supple Respiratory: no respiratory distress, speaking full sentences Cardiovascular #1: normal inspection Gastrointestinal: normal inspection Musculoskeletal: normal inspection Neurologic: normal inspection, alert, oriented x3, responsive, normal gait Psychiatric: mood/affect normal Skin: no rash Medical Decision Making Diagnostic Impression: Primary Impression: Pain, dental ER Course Patient presented for dental pain. Differential diagnosis included but was not limited to trigeminal neuralgia, dental abscess, dry socket, osteomyelitis, nerve injury. The patient was noted to have a benign exam. There is no evidence of infection. Patient had previously been prescribed Tylenol with codeine. Patient will also be given prescription for viscous lidocaine to use topically to assist with pain control. The patient is advised to follow up with his dentist in a previously scheduled appointment in the morning. patient is again advised to return if any worsening condition or if any changes in status that are concerning. Last Vital Signs Date Time Temp Pulse Resp B/P (MAP) Pulse Ox O2 Delivery O2 Flow Rate FiO2 10/20/18 01:37 98.6 76 16 160/107 98 Room Air Status: improved Disposition: HOME, SELF-CARE Condition: Stable Scripts Lidocaine HCl 2% Viscous (Lidocaine HCl 2% Viscous) 100 Ml Solution 15 ML ORAL QID, #100 ML Prov: Harman Hart MD 10/20/18 Patient Instructions: Dental Pain Harman Hart MD Oct 20, 2018 01:43
[2018-10-20] MEDS ORDERED: Lidocaine 2% Visc 15ml soln ORAL ONE (01:45)
[2018-10-20] MEDS ORDERED: Lidocaine HCl 2% Jelly 6ml Tube TOPIC ONE (01:52)
--- NOTE | 2018-10-20 02:00 | NUR ---
ED Nurse Note: medication not loaded in pyxis, charge nurse notified.
[2018-10-20 02:13] VITALS: BP 148/91
--- NOTE | 2018-10-20 02:13 | NUR ---
ED Nurse Note: pt cleared to be d/c per ER provider, pt discharge and aftercare instruction provided w/ prescription, pt education done via discussion and handout, pt advised to follow up with dentist or return to ed if sx worsen or new sx develop, pt verbalized understanding and agrees with plan, vss, ambulatory w/steady gait, left w/ all belongings.
== END 2018-10-20 02:15 | disposition home or self-care (01) ==
LOC: EMR 01:56
DX: K08.89 Other specified disorders of teeth and supporting structures (principal); I10 Essential (primary) hypertension
CPT/HCPCS: 99282

== ENCOUNTER 2019-08-12 15:51 | Emergency (ER) | payer MEDICAID ==
[~2019-08-12] VITALS: Ht 177.8 cm; Wt 81.6 kg
[~2019-08-12 15:51] MED LIST changes: +LIDOCAINE VISC100 ML ORAL
[2019-08-12 16:00] VITALS: BP 110/65
--- NOTE | 2019-08-12 16:00 | NUR ---
ED Nurse Note: Patient came to ED from home c/o 10/ mid back pain that started 2 days ago that radiates to his chest when changing position. Patient had colonoscopy 2 days ago. Patient AxO x 4, no s/s of acute distress. 20 g IV started in left AC
--- NOTE | 2019-08-12 16:15 | NUR ---
ED Nurse Note: Patient refusing having an IV started, stating he does not like needles and is in too much pain. States he would like to wait until his pain is less before trying an IV
[2019-08-12] MEDS ORDERED: Ketorolac 30mg Inj IV ONE (16:30)
--- NOTE | 2019-08-12 17:15 | Emergency Room Report ---
History of Present Illness General Chief Complaint: Chest Pain Source: Patient Present Illness HPI Patient presents with complaints of left upper chest pain Reports that now the pain is more localized to the left upper back region with radiation down to the buttock and lower leg Patient has difficulty moving or turning reports that movement worsens his pain patient reports that he is down here from [place] and had colonoscopy 2 days ago for tumors and is awaiting results denies any abdominal pain denies any vomiting or diarrhea denies any shortness of breath denies any pleurisy Allergies: Coded Allergies: No Known Allergies (Unverified , 06/03/14) Patient History Past Medical History: see triage record Reviewed Nursing Documentation: PMH: Agreed; PSxH: Agreed Nursing Documentation-PMH Past Medical History: No History, Except For Hx Cardiac Problems: No Hx Hypertension: Yes Hx Cancer: No Hx Gastrointestinal Problems: Yes - 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 Hx Neurological Problems: No Review of Systems All Other Systems: negative except mentioned in HPI Physical Exam Vital Signs Date Time Temp Pulse Resp B/P (MAP) Pulse Ox O2 Delivery O2 Flow Rate FiO2 08/12/19 16:00 98.4 65 16 110/65 (80) 97 Room Air Sp02 EP Interpretation: reviewed, normal General Appearance: mild distress - Patient grimacing and having difficulty providing full history anytime he tries to move Head: normocephalic, atraumatic Eyes: bilateral eye PERRL, bilateral eye EOMI ENT: EOM grossly intact Neck: supple Respiratory: lungs clear, no respiratory distress, no retraction Cardiovascular #1: regular rate, rhythm Gastrointestinal: non tender, soft Musculoskeletal: other - Significant discomfort with any touch or manipulation of the left scapular rhomboid region Neurologic: alert, oriented x3 Psychiatric: normal inspection Skin: no rash Lymphatic: normal inspection Medical Decision Making Diagnostic Impression: Primary Impression: Chest pain ER Course Patient is a fairly complex patient with multiple differential to consideration including but not limited to cardiac cardiopulmonary and vascular emergencies Patient has extensive blood work initiated Along with imaging After receiving the pain medication patient reports that he feels significantly improved and does not want to continue further with the blood work Chest x-ray was normal I did discuss with him that not having the full examination can lead to missed diagnoses and possible potential negative outcomes patient is fully oriented has full decision-making capacity And refusing further intervention EKG Diagnostic Results Rate: normal Rhythm: NSR ST Segments: no acute changes Rhythm Strip Diag. Results EP Interpretation: yes Rate: 70 Rhythm: NSR, no PVC's, no ectopy Chest X-Ray Diagnostic Results Chest X-Ray Diagnostic Results : Chest X-Ray Ordered: Yes # of Views/Limited/Complete: 1 View Indication: Chest Pain EP Interpretation: Yes Interpretation: no consolidation, no effusion, no pneumothorax Impression: No acute disease Electronically Signed by: Dwight Shin DO Last Vital Signs Date Time Temp Pulse Resp B/P (MAP) Pulse Ox O2 Delivery O2 Flow Rate FiO2 08/12/19 16:00 98.4 65 16 110/65 (80) 97 Room Air Status: improved Disposition: HOME, SELF-CARE Condition: Improved Scripts Methocarbamol* (ROBAXIN-750*) 750 Mg Tablet 750 MG PO TID, #21 TAB 0 Refills Prov: Dwight Shin DO 08/12/19 Ibuprofen* (MOTRIN*) 600 Mg Tablet 600 MG ORAL Q8H PRN for For Pain, #20 TAB 0 Refills Prov: Dwight Shin DO 08/12/19 Additional Instructions: Patient is provided with the discharge instructions notified to follow up with primary doctor in the next 2-3 days otherwise return to the er with any worsening symptoms. Please note that this report is being documented using [employer] technology. This can lead to erroneous entry secondary to incorrect interpretation by the dictating instrument. Dwight Shin DO Aug 12, 2019 17:15
--- NOTE | 2019-08-12 17:27 | NUR ---
ED Nurse Note: Patient refusing IV and lab work, Dr. Shin aware.
--- NOTE | 2019-08-12 17:58 | Diagnostic Imaging Report ---
EXAM: XR Chest, 1 View CLINICAL HISTORY: CP TECHNIQUE: Frontal view of the chest. COMPARISON: Chest radiograph on 08/31/2018 FINDINGS: Hardware: None. Lungs/pleura: Normal. No focal consolidation. No pleural effusion or pneumothorax. Heart/mediastinum: Normal. No cardiomegaly. Soft tissues: Unremarkable. Bones: No acute fracture. Bilateral shoulder arthroplasties partially visualized. Upper abdomen: Normal. IMPRESSION: No acute disease identified.
[2019-08-12] MEDS ORDERED: ROBAXIN-750750 MG PO (18:11)
[2019-08-12] MEDS ORDERED: IBUPROFEN600 MG ORAL (18:11)
[2019-08-12 18:20] VITALS: BP 110/65
--- NOTE | 2019-08-12 18:20 | NUR ---
ER DISCHARGE NOTE: Patient is cleared to be discharged per ERMD, pt is aox4, on room air, with stable vital signs. pt was given dc and prescription instructions, pt was able to verbalize understanding, pt id band and iv site removed without complications. pt is able to ambulate with steady gait. pt took all belongings.
== END 2019-08-12 18:20 | disposition home or self-care (01) ==
LOC: EMR 16:35
DX: R07.9 Chest pain, unspecified (principal); I10 Essential (primary) hypertension
CPT/HCPCS: 71045; 93005; 96374; J1885; Z7502; 99284

== ENCOUNTER 2019-12-22 20:58 | Emergency (ER) | payer MEDICAID ==
[~2019-12-22] VITALS: Ht 177.8 cm; Wt 78.5 kg
[~2019-12-22 20:58] MED LIST changes: +ROBAXIN-750750 MG PO
--- NOTE | 2019-12-22 21:15 | NUR ---
ED Nurse Note: ambulated to ed c/o persistent 8/10 dull pain to sacral and right hip pain s/p syncopal fall x 1 week. patient reports loss of consciousness during episode of fall; unwitnessed; unknown duration; trauma to sacral, right hip, and right chin. Reports increasing pain when sitting. Patient able to ambulate with steady. changed into gown; attached to monitor. patient ao4. nad. vss.
[2019-12-22 21:30] VITALS: BP 150/93
--- NOTE | 2019-12-22 21:30 | NUR ---
ED Nurse Note: IV access established. blood and urine collected; sent down to lab. EKG done at bedside; NSR.
--- NOTE | 2019-12-22 21:35 | Emergency Room Report ---
History of Present Illness General Chief Complaint: Pelvic Pain Source: Patient (Timothy Samuels MD) Present Illness HPI Disclaimer: Please note that this report is being documented using DRAGON technology. This can lead to erroneous entry secondary to incorrect interpretation by the dictating instrument. HPI: 54-year-old male with history of stage II colon cancer recently completed chemotherapy presents for evaluation of hip and back pain, pelvic pain after fall last week. Patient states he awoke in the middle the night approximately 1 week ago went to use the bathroom and had an unprovoked syncopal episode. He denies any preceding palpitations, chest pain, shortness of breath, lightheadedness but simply woke up on the ground. He states he had a headache for several days but resolved. He denies neck or back pain. He is complaining continued pain over the lower pelvis and hips. Denies any pain radiating down his legs. Denies urinary retention. He states he does have some difficulty initiating a urinary stream which his oncologist said is related to his treatments causing some inflammatory cystitis. He denies any fever, chills, chest pain, shortness of breath. No history of DVT, coagulopathies. Is not taking anticoagulants. Patient tested COVID-19 negative this week. PMH: Stage II colon cancer PSH: Bilateral shoulder repair Allergies: Denied Social Hx: Denies tobacco, alcohol or drug use (Timothy Samuels MD) Allergies: Coded Allergies: No Known Allergies (Unverified , 06/03/14) COVID-19 Screening Contact w/high risk pt: No Recent Travel to affected area: No Experienced COVID-19 symptoms?: No COVID-19 Testing performed SPANISH INTERPRETER: Yes COVID-19 Screening: Negative COVID-19 COVID-19 Testing Source: @AutoAlert (Tmiothy Samuels MD) Nursing Documentation-PMH Hx Cardiac Problems: No Hx Hypertension: Yes Hx Cancer: No Hx Gastrointestinal Problems: Yes - 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 Hx Neurological Problems: No (Timothy Samuels MD) Review of Systems All Other Systems: negative except mentioned in HPI (Timothy Samuels MD) Physical Exam Vital Signs Date Time Temp Pulse Resp B/P (MAP) Pulse Ox O2 Delivery O2 Flow Rate FiO2 12/22/19 21:12 98.4 76 18 150/93 (112) 99 Room Air General: Awake and alert, no acute distress HEENT: NC/AT. EOMI. Cardiovascular: RRR. S1 and S2 normal. No murmur appreciated Resp: Normal work of breathing. No cough, wheezing or crackles appreciated Abdomen: Abdomen is soft, nondistended. Nontender Skin: Intact. No abrasions, laceration or rash over the exposed skin MSK: Normal tone and bulk. Moving all extremities. No obvious deformity. Neuro: Awake and alert. Mentating appropriately. Spine: No tenderness, step-off or deformity of cervical, thoracic or lumbar spine. Mild tenderness over the sacrum and initial tuberosities. (Timothy Samuels MD) Medical Decision Making Diagnostic Impression: Primary Impression: Contusion Additional Impression: incidental ct findings ER Course Is a 54-year-old male history of stage II colon cancer recently completed chemotherapy 2 weeks ago presents for evaluation of pelvic pain after a fall and syncopal episode 1 week ago. He was straining to urinate at the time. Differential includes was not limited to vasovagal syncope, thromboembolic event , arrhythmia, ACS. Patient is well-appearing arrives with stable vital signs. While I believe the possibility of thromboembolic event is less likely because of the complexity of this case will obtain broad labs including a d-dimer. If d -dimer is positive will obtain a CTA of the torso otherwise will obtain a CT scan with IV contrast of the abdomen and pelvis to evaluate for metastatic burden possible metastases or fracture given his recent fall. Patient may have had a vasovagal episode after straining. 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 Will be signed out to oncoming provider pending labs and imaging as well as ultimate disposition. (Timothy Samuels MD) ER Course Please refer to the initial note for the history exam and presentation Initially given the syncopal episode and the patient's complaints there was consideration given to PE therefore d-dimer had been done which was negative And at that time the Decision was made to move forward with CT of the abdomen pelvis There is some incidental finding with enlarged gallbladder and enlarged common bile duct, in the pelvic area however no obvious anomalies were reported And no obvious fractures reported On repeat evaluation medically patient reports that he was simply concerned about his injury to the right hip and pelvic area He felt that the pain came on after the fall and injury And wanted to make sure there was no emergency process I did share with him the abnormality on CT imaging which will require, outpatient follow-up He reports that he has a phone video meeting tomorrow with his physician and a copy was given to him for follow-up Given the patient's past medical history, cancer needs to be considered Patient otherwise medically stable for close outpatient follow-up Labs Test 12/22/19 21:30 White Blood Count 5.9 K/UL (4.8-10.8) Red Blood Count 4.16 M/UL (4.70-6.10) Hemoglobin 13.6 G/DL (14.2-18.0) Hematocrit 43.8 % (42.0-52.0) Mean Corpuscular Volume 105 FL (80-99) Mean Corpuscular Hemoglobin 32.7 PG (27.0-31.0) Mean Corpuscular Hemoglobin Concent 31.1 G/DL (32.0-36.0) Red Cell Distribution Width 14.9 % (11.6-14.8) Platelet Count 231 K/UL (150-450) Mean Platelet Volume 6.7 FL (6.5-10.1) Neutrophils (%) (Auto) 64.9 % (45.0-75.0) Lymphocytes (%) (Auto) 23.2 % (20.0-45.0) Monocytes (%) (Auto) 8.9 % (1.0-10.0) Eosinophils (%) (Auto) 1.1 % (0.0-3.0) Basophils (%) (Auto) 1.8 % (0.0-2.0) Prothrombin Time 10.8 SEC (9.30-11.50) Prothromb Time International Ratio 1.0 (0.9-1.1) Activated Partial Thromboplast Time 28 SEC (23-33) D-Dimer 0.43 mg/L FEU (0.00-0.49) Urine Color Pale yellow Urine Appearance Clear Urine pH 6.5 (4.5-8.0) Urine Specific [place] 1.015 (1.005-1.035) Urine Protein Negative (NEGATIVE) Urine Glucose (UA) Negative (NEGATIVE) Urine Ketones Negative (NEGATIVE) Urine Blood 1+ (NEGATIVE) Urine Nitrite Negative (NEGATIVE) Urine Bilirubin Negative (NEGATIVE) Urine Urobilinogen Normal MG/DL (0.0-1.0) Urine Leukocyte Esterase 1+ (NEGATIVE) Urine RBC 2-4 /HPF (0 - 0) Urine WBC 5-10 /HPF (0 - 0) Urine Squamous Epithelial Cells Occasional /LPF Urine Bacteria Few /HPF (NONE) Sodium Level 141 MMOL/L (136-145) Potassium Level 4.0 MMOL/L (3.5-5.1) Chloride Level 105 MMOL/L (98-107) Carbon Dioxide Level 27 MMOL/L (21-32) Anion Gap 10 mmol/L (5-15) Blood Urea Nitrogen 10 mg/dL (7-18) Creatinine 1.3 MG/DL (0.55-1.30) Estimat Glomerular Filtration Rate > 60 mL/min (>60) Glucose Level 92 MG/DL (74-106) Calcium Level 8.8 MG/DL (8.5-10.1) Total Bilirubin 0.4 MG/DL (0.2-1.0) Aspartate Amino Transf (AST/SGOT) 18 U/L (15-37) Alanine Aminotransferase (ALT/SGPT) 28 U/L (12-78) Alkaline Phosphatase 71 U/L (46-116) Troponin I 0.000 ng/mL (0.000-0.056) Total Protein 7.7 G/DL (6.4-8.2) Albumin 4.2 G/DL (3.4-5.0) Globulin 3.5 g/dL Albumin/Globulin Ratio 1.2 (1.0-2.7) (Dwight Shin DO) EKG Diagnostic Results EKG Time: 21:33 Rate: normal Rhythm: NSR ST Segments: no acute changes Other Impression Sinus rhythm, normal axis, normal intervals, no ST segment changes. (Timothy Samuels MD) Rhythm Strip Diag. Results Rhythm Strip Time: 21:23 EP Interpretation: yes Rate: 60s Rhythm: NSR, no PVC's, no ectopy (Timothy Samuels MD) EP Interpretation: yes Rate: 77 Rhythm: NSR, no PVC's, no ectopy (Dwight Shin DO) CT/MRI/US Diagnostic Results CT/MRI/US Diagnostic Results : Impression CT abdomen pelvisIMPRESSION: Significant dilation of the common bile duct, pancreatic duct, as well as the gallbladder. No obvious obstructing mass or stone. MRCP can be utilized for further evaluation for better delineation of obstructing stone or mass. Otherwise, no acute abnormality of the abdomen and pelvis. (Dwight Shin DO) Last Vital Signs Date Time Temp Pulse Resp B/P (MAP) Pulse Ox O2 Delivery O2 Flow Rate FiO2 12/22/19 21:12 98.4 76 18 150/93 (112) 99 Room Air (Timothy Samuels MD) Status: improved (Dwight Shin DO) Disposition: HOME, SELF-CARE Condition: Improved Additional Instructions: Patient is provided with the discharge instructions notified to follow up with primary doctor in the next 2-3 days otherwise return to the er with any worsening symptoms. Please note that this report is being documented using DRAGON technology. This can lead to erroneous entry secondary to incorrect interpretation by the dictating instrument. Timothy Samuels MD Dec 22, 2019 21:35 Dwight Shin DO Dec 23, 2019 02:59
[2019-12-22 21:59] LABS: APPEARANCE,URINE CLEAR; BILIRUBIN, URINE NEGATIVE (NEGATIVE); COLOR,URINE PALE YELLOW; GLUCOSE, URINE (UA) NEGATIVE (NEGATIVE); KETONES,URINE NEGATIVE (NEGATIVE); LEUKOCYTE ESTERASE ,URINE 1+ (NEGATIVE); NITRITE,URINE NEGATIVE (NEGATIVE); PH,URINE 6.5 (4.5-8.0); PROTEIN,URINE NEGATIVE (NEGATIVE); UROBILINOGEN,URINE NORMAL MG/DL (0.0-1.0)
[2019-12-22 22:00] LABS: BASOPHILS % (AUTO) 1.8 % (0.0-2.0); EOSINOPHILS % (AUTO) 1.1 % (0.0-3.0); HEMATOCRIT 43.8 % (42.0-52.0); HEMOGLOBIN 13.6 G/DL (14.2-18.0); LYMPHOCYTES % (AUTO) 23.2 % (20.0-45.0); MEAN CORPUSCULAR VOLUME 105 FL (80-99); MONOCYTES % (AUTO) 8.9 % (1.0-10.0); NEUTROPHILS % (AUTO) 64.9 % (45.0-75.0); PLATELET COUNT 231 K/UL (150-450); RED BLOOD COUNT 4.16 M/UL (4.70-6.10); RED CELL DISTRIBUTION WIDTH 14.9 % (11.6-14.8); WHITE BLOOD COUNT 5.9 K/UL (4.8-10.8)
[2019-12-22 22:21] VITALS: BP 130/86
--- NOTE | 2019-12-22 22:22 | NUR ---
ED Nurse Note: patient resting in bed with no acute signs of distress. denies nausea or pain. vss. awaiting lab results.
[2019-12-22 22:29] LABS: ANION GAP 10 mmol/L (5-15); BLOOD UREA NITROGEN 10 mg/dL (7-18); CALCIUM 8.8 MG/DL (8.5-10.1); CARBON DIOXIDE 27 MMOL/L (21-32); CHLORIDE 105 MMOL/L (98-107); CREATININE 1.3 MG/DL (0.55-1.30); SODIUM 141 MMOL/L (136-145)
[2019-12-22 22:35] LABS: ALANINE AMINOTRANSFERASE 28 U/L (12-78); ALBUMIN 4.2 G/DL (3.4-5.0); ALBUMIN/GLOBULIN RATIO 1.2 (1.0-2.7); ALKALINE PHOSPHATASE 71 U/L (46-116); ASPARTATE AMINO TRANSFERASE 18 U/L (15-37); BILIRUBIN,TOTAL 0.4 MG/DL (0.2-1.0)
[2019-12-22] MEDS ORDERED: Omnipaque-300 100ml vial INJ PRN (22:45)
--- NOTE | 2019-12-22 22:48 | NUR ---
ED Nurse Note: patient down to ct via gurney with transporter radiology.
--- NOTE | 2019-12-22 23:00 | NUR ---
ED Nurse Note: patient back from ct via gurney with isotope technician. patient in stable condition; denies pain or nausea. pt on the phone resting comfortably in bed
--- NOTE | 2019-12-22 23:05 | Diagnostic Imaging Report ---
EXAM: CT Abdomen and Pelvis With Intravenous Contrast CLINICAL HISTORY: PAIN TECHNIQUE: Axial computed tomography images of the abdomen and pelvis with intravenous contrast. CTDI is 5.5 mGy and DLP is 278.3 mGy-cm. One or more of the following dose reduction techniques were used: automated exposure control, adjustment of the mA and/or kV according to patient size, use of iterative reconstruction technique. COMPARISON: None available. FINDINGS: Lung bases: Unremarkable. No mass. No consolidation. ABDOMEN: Liver: Scattered hypodensities are noted within the liver and are too small to characterize. Gallbladder and bile ducts: There is dilation of the common bile duct, measuring up to 1.5 cm. Additionally, there is dilation of the pancreatic duct. There is no obvious mass or radiopaque stone. There is dilation of the gallbladder measuring up to 9.2 cm. There is no obvious gallstone. Pancreas: Unremarkable. No mass. Spleen: Unremarkable. No splenomegaly. Adrenals: Unremarkable. No mass. Kidneys and ureters: Unremarkable. No solid mass. No hydronephrosis. Stomach and bowel: Unremarkable. No obstruction. No mucosal thickening. PELVIS: Appendix: No findings to suggest acute appendicitis. Bladder: Unremarkable. No mass. Reproductive: Unremarkable as visualized. ABDOMEN and PELVIS: Intraperitoneal space: Unremarkable. No free air. No significant fluid collection. Bones/joints: No acute fracture. No dislocation. Soft tissues: Unremarkable. Vasculature: Unremarkable. No abdominal aortic aneurysm. Lymph nodes: Unremarkable. No enlarged lymph nodes. IMPRESSION: Significant dilation of the common bile duct, pancreatic duct, as well as the gallbladder. No obvious obstructing mass or stone. MRCP can be utilized for further evaluation for better delineation of obstructing stone or mass. Otherwise, no acute abnormality of the abdomen and pelvis.
[2019-12-22 23:56] VITALS: BP 122/85
--- NOTE | 2019-12-22 23:57 | NUR ---
ED Nurse Note: patient ambulated to bathroom with steady gait. assisted back into bed; reattached to monitor; vitals stable.
[2019-12-23 01:00] VITALS: BP 118/65
== END 2019-12-23 01:00 | disposition home or self-care (01) ==
LOC: EMR 21:31
DX: S70.02XA Contusion of left hip, initial encounter (principal); S70.01XA Contusion of right hip, initial encounter; C18.9 Malignant neoplasm of colon, unspecified; I10 Essential (primary) hypertension; K82.8 Other specified diseases of gallbladder; K83.8 Other specified diseases of biliary tract; W01.0XXA Fall on same level from slipping, tripping and stumbling without subsequent striking against object, initial encounter; Y93.01 Activity, walking, marching and hiking; Y92.019 Unspecified place in single-family (private) house as the place of occurrence of the external cause
CPT/HCPCS: 36415; 74177; 80053; 81003; 84484; 85025; 85379; 85610; 85730; 93005; Q9967; Z7502; 99284

== ENCOUNTER 2020-01-05 09:52 | Emergency (ER) | payer MEDICAID ==
[~2020-01-05] VITALS: Ht 177.8 cm; Wt 80.7 kg
[2020-01-05 10:20] VITALS: BP 134/96
[2020-01-05] MEDS ORDERED: Methocarbamol 750mg tab ORAL ONE (10:30)
[2020-01-05] MEDS ORDERED: Ketorolac 30mg Inj IM ONE (10:30)
[2020-01-05] MEDS ORDERED: NORCO 5-325 TA1 EAC1 ORAL (10:37)
[2020-01-05] MEDS ORDERED: ZOFRAN ODT8 MG ORAL (10:37)
[2020-01-05 10:54] LABS: APPEARANCE,URINE CLEAR; BILIRUBIN, URINE NEGATIVE (NEGATIVE); GLUCOSE, URINE (UA) NEGATIVE (NEGATIVE); KETONES,URINE NEGATIVE (NEGATIVE); LEUKOCYTE ESTERASE ,URINE NEGATIVE (NEGATIVE); NITRITE,URINE NEGATIVE (NEGATIVE); PH,URINE 5 (4.5-8.0); PROTEIN,URINE NEGATIVE (NEGATIVE); UROBILINOGEN,URINE NORMAL MG/DL (0.0-1.0)
[2020-01-05 11:09] LABS: COLOR,URINE YELLOW
--- NOTE | 2020-01-05 11:28 | Emergency Room Report ---
History of Present Illness General Chief Complaint: Back Pain-No Injury Source: Patient Present Illness HPI 54-year-old male presents the ED complaining of back pain. Notes pain to his right mid back since last night. Denies any fall or injury. Pain is dull, 10 out of 10, nonradiating. Denies dysuria or hematuria. Denies nausea or vomiting. Denies chest pain or shortness of breath. History of rectal cancer. No other aggravating relieving factors. Denies any other associated symptoms Allergies: Coded Allergies: No Known Allergies (Unverified , 06/03/14) COVID-19 Screening Contact w/high risk pt: No Recent Travel to affected area: No Experienced COVID-19 symptoms?: No COVID-19 Testing performed DESTATICIZER FEEDER: No Patient History Past Medical History: HTN, other - cancer Social History: Denies: smoking, alcohol use, drug use Immunizations: UTD Reviewed Nursing Documentation: PMH: Agreed; PSxH: Agreed Nursing Documentation-PMH Past Medical History: No History, Except For Hx Cardiac Problems: No Hx Hypertension: Yes Hx Cancer: No Hx Gastrointestinal Problems: Yes - 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 Hx Neurological Problems: No Review of Systems All Other Systems: negative except mentioned in HPI Physical Exam Vital Signs Date Time Temp Pulse Resp B/P (MAP) Pulse Ox O2 Delivery O2 Flow Rate FiO2 01/05/20 09:56 98.1 68 21 134/96 (109) 98 Sp02 EP Interpretation: reviewed, normal General Appearance: no apparent distress, alert, GCS 15, non-toxic Head: normocephalic, atraumatic Eyes: bilateral eye normal inspection, bilateral eye PERRL ENT: hearing grossly normal, normal pharynx, no angioedema, normal voice Neck: full range of motion, supple/symm/no masses Respiratory: chest non-tender, lungs clear, normal breath sounds, speaking full sentences Cardiovascular #1: regular rate, rhythm, no edema Cardiovascular #2: 2+ carotid (R), 2+ carotid (L), 2+ radial (R), 2+ radial (L) , 2+ dorsalis pedis (R), 2+ dorsalis pedis (L) Gastrointestinal: normal bowel sounds, non tender, soft, non-distended, no guarding, no rebound Rectal: deferred Genitourinary: normal inspection, CVA tenderness (R) Musculoskeletal: back normal, normal range of motion, gait/station normal, non- tender Neurologic: alert, motor strength/tone normal, oriented x3, sensory intact, responsive, speech normal Psychiatric: judgement/insight normal, memory normal, mood/affect normal, no suicidal/homicidal ideation Reflexes: 3+ bicep (R), 3+ bicep (L), 3+ tricep (R), 3+ tricep (L), 3+ knee (R) , 3+ knee (L) Skin: no rash Lymphatic: no adenopathy Medical Decision Making Diagnostic Impression: Primary Impression: Back pain Qualified Codes: M54.6 - Pain in thoracic spine ER Course Hospital Course 54-year-old M presents to ED with R mid back pain Differential diagnosis includes-muscle strain, cholecystitis, pyelonephritis Clinical course Patient placed on stretcher. After initial history and physical I ordered UA, pain meds, ultrasound UA no blood no bacteria Ultrasound shows mildly dilated CBD. No signs of gallstones or gallbladder wall thickening or sludge. Patient had CT in December which showed similar findings . Patient was recommended at that time to follow-up with GI for incidental findings. Patient is scheduled to have an appointment soon he states. I believe his findings today are more likely muscular. Pain resolved after Toradol, Lidoderm, Robaxin. Safe for discharge for close outpatient follow-up. States he has a PMD I feel this is a highly complex case requiring extensive working including EKG/ Rhythm strip, Xray/CT/US, Blood/urine lab work, repeat exams while in ED, and administration of strong opiates/narcotics for pain control, admission to hospital or close patient follow up. Diagnosis - back pain Stable and discharged to home with Rx Motrin, Robaxin, Lidoderm. Followup with PMD/GI. Return to ED if symptoms recur or worsen Labs Test 01/05/20 10:28 Urine Color Yellow Urine Appearance Clear Urine pH 5 (4.5-8.0) Urine Specific [place] 1.020 (1.005-1.035) Urine Protein Negative (NEGATIVE) Urine Glucose (UA) Negative (NEGATIVE) Urine Ketones Negative (NEGATIVE) Urine Blood Negative (NEGATIVE) Urine Nitrite Negative (NEGATIVE) Urine Bilirubin Negative (NEGATIVE) Urine Urobilinogen Normal MG/DL (0.0-1.0) Urine Leukocyte Esterase Negative (NEGATIVE) CT/MRI/US Diagnostic Results CT/MRI/US Diagnostic Results : Imaging Test Ordered: ABD US Impression Procedure: US ABD Complete Indication: Abdominal pain and right flank pain Technique: Cantu-scale and duplex images of the upper abdomen were obtained Comparison: No comparison sonograms. Reference made to CT scan 12/22/2019 Findings: Gallbladder is unremarkable, without stones, wall thickening, nor pericholecystic fluid. Sonographic Crowe's sign is negative. Common bile duct measures 8 mm in diameter. No intrahepatic biliary ductal dilatation. Liver demonstrates diffusely increased echogenicity, consistent with diffuse hepatocellular disease, most likely fatty change. Area of focal sparing is seen in the usual location adjacent to the gallbladder fossa. Small cysts with mural calcifications are seen within the liver. Portal vein and hepatic veins are patent. Pancreas is unremarkable except for ectasia of the main pancreatic duct which measures 5 mm in diameter. Spleen is unremarkable. Left kidney measures 11.3 cm in length. Right kidney measures 10.5 cm length. Both kidneys demonstrate normal echogenicity. There is no hydronephrosis. Small cyst is seen in the right kidney . Non-aneurysmal abdominal aorta . Impression: Negative for gallstones Prominent common bile duct. Downstream obstruction not completely excludable. Correlate with liver function tests, consider MRCP if clinically indicated. This is also evident on recent CT scan without evidence of downstream obstructive process Dilated main pancreatic duct, also described on recent CT scanner. Likewise no definite evidence of downstream obstructive process. Correlate with any clinical history of chronic pancreatitis. MRCP may be useful for better characterization as clinically indicated. Equivocal increased hepatic echogenicity. Could indicate fatty change although possibly artifactual given lack of evidence of such on recent CT scan Hepatic and right renal cysts, also previously reported Last Vital Signs Date Time Temp Pulse Resp B/P (MAP) Pulse Ox O2 Delivery O2 Flow Rate FiO2 01/05/20 10:20 98.1 21 134/96 98 01/05/20 09:56 68 Status: improved Disposition: HOME, SELF-CARE Condition: Stable Scripts Lidocaine Patch* (Lidoderm Patch*) 1 Each Adh..patch 1 PATCH TOPIC DAILY, #7 PATCH 0 Refills Patch(es) may remain in place for up to 12 hours in any 24-hour period. Prov: James Cedillo MD 01/05/20 Methocarbamol* (ROBAXIN-750*) 750 Mg Tablet 750 MG PO TID, #21 TAB 0 Refills Prov: James Cedillo MD 01/05/20 Ibuprofen* (MOTRIN*) 600 Mg Tablet 600 MG ORAL Q8H PRN for FOR PAIN, #30 TAB 0 Refills Prov: James Cedillo MD 01/05/20 Referrals: NON PHYSICIAN (PCP) James Cedillo MD Jan 05, 2020 11:28
[2020-01-05] MEDS ORDERED: LIDODERM700 M1 TOPIC (12:30)
[2020-01-05] MEDS ORDERED: IBUPROFEN600 M1 ORAL (12:30)
[2020-01-05] MEDS ORDERED: ROBAXIN-750750 MG PO (12:30)
--- NOTE | 2020-01-05 12:37 | Diagnostic Imaging Report ---
Indication: Abdominal pain and right flank pain Technique: Cantu-scale and duplex images of the upper abdomen were obtained Comparison: No comparison sonograms. Reference made to CT scan 12/22/2019 Findings: Gallbladder is unremarkable, without stones, wall thickening, nor pericholecystic fluid. Sonographic Crowe's sign is negative. Common bile duct measures 8 mm in diameter. No intrahepatic biliary ductal dilatation. Liver demonstrates diffusely increased echogenicity, consistent with diffuse hepatocellular disease, most likely fatty change. Area of focal sparing is seen in the usual location adjacent to the gallbladder fossa. Small cysts with mural calcifications are seen within the liver. Portal vein and hepatic veins are patent. Pancreas is unremarkable except for ectasia of the main pancreatic duct which measures 5 mm in diameter. Spleen is unremarkable. Left kidney measures 11.3 cm in length. Right kidney measures 10.5 cm length. Both kidneys demonstrate normal echogenicity. There is no hydronephrosis. Small cyst is seen in the right kidney . Non-aneurysmal abdominal aorta . Impression: Negative for gallstones Prominent common bile duct. Downstream obstruction not completely excludable. Correlate with liver function tests, consider MRCP if clinically indicated. This is also evident on recent CT scan without evidence of downstream obstructive process Dilated main pancreatic duct, also described on recent CT scanner. Likewise no definite evidence of downstream obstructive process. Correlate with any clinical history of chronic pancreatitis. MRCP may be useful for better characterization as clinically indicated. Equivocal increased hepatic echogenicity. Could indicate fatty change although possibly artifactual given lack of evidence of such on recent CT scan Hepatic and right renal cysts, also previously reported
[2020-01-05 12:40] VITALS: BP 130/87
== END 2020-01-05 12:40 | disposition home or self-care (01) ==
LOC: EMR 10:39
DX: M54.6 Pain in thoracic spine (principal); I10 Essential (primary) hypertension; Z85.038 Personal history of other malignant neoplasm of large intestine
CPT/HCPCS: 76700; 81003; 96372; 99284

== ENCOUNTER 2020-01-26 16:27 | Emergency (ER) | payer MEDICAID ==
[~2020-01-26] VITALS: Ht 177.8 cm; Wt 79.4 kg
[~2020-01-26 16:27] MED LIST changes: +IBUPROFEN600 M1 ORAL; +LIDODERM700 M1 TOPIC; +NORCO 5-325 TA1 EAC1 ORAL; +ZOFRAN ODT8 MG ORAL
[2020-01-26 16:40] VITALS: BP 133/86
[2020-01-26] MEDS ORDERED: Ketorolac 30mg Inj IV ONE (16:45)
[2020-01-26] MEDS ORDERED: Omnipaque-300 100ml vial INJ PRN (16:45)
[2020-01-26] MEDS ORDERED: Morphine Sulfate 2mg/ml Inj(IV/IM USE ONLY) IVP ONE (17:00)
[2020-01-26 17:48] LABS: APPEARANCE,URINE CLEAR; BASOPHILS % (AUTO) 1.7 % (0.0-2.0); BILIRUBIN, URINE NEGATIVE (NEGATIVE); COLOR,URINE PALE YELLOW; EOSINOPHILS % (AUTO) 2.4 % (0.0-3.0); GLUCOSE, URINE (UA) NEGATIVE (NEGATIVE); HEMATOCRIT 44.3 % (42.0-52.0); HEMOGLOBIN 14.4 G/DL (14.2-18.0); KETONES,URINE NEGATIVE (NEGATIVE); LEUKOCYTE ESTERASE ,URINE NEGATIVE (NEGATIVE); LYMPHOCYTES % (AUTO) 20.2 % (20.0-45.0); MEAN CORPUSCULAR VOLUME 100 FL (80-99); MONOCYTES % (AUTO) 7.8 % (1.0-10.0); NEUTROPHILS % (AUTO) 67.9 % (45.0-75.0); NITRITE,URINE NEGATIVE (NEGATIVE); PH,URINE 7 (4.5-8.0); PLATELET COUNT 216 K/UL (150-450); PROTEIN,URINE NEGATIVE (NEGATIVE); RED BLOOD COUNT 4.42 M/UL (4.70-6.10); RED CELL DISTRIBUTION WIDTH 11.7 % (11.6-14.8); UROBILINOGEN,URINE NORMAL MG/DL (0.0-1.0); WHITE BLOOD COUNT 4.1 K/UL (4.8-10.8)
[2020-01-26 18:09] LABS: ANION GAP 4 mmol/L (5-15); BLOOD UREA NITROGEN 11 mg/dL (7-18); CARBON DIOXIDE 32 MMOL/L (21-32); CHLORIDE 104 MMOL/L (98-107); CREATININE 1.2 MG/DL (0.55-1.30); POTASSIUM 4.9 MMOL/L (3.5-5.1); SODIUM 140 MMOL/L (136-145)
[2020-01-26 18:14] LABS: ALANINE AMINOTRANSFERASE 32 U/L (12-78); ALBUMIN 4.1 G/DL (3.4-5.0); ALBUMIN/GLOBULIN RATIO 1.4 (1.0-2.7); ALKALINE PHOSPHATASE 65 U/L (46-116); ASPARTATE AMINO TRANSFERASE 32 U/L (15-37); BILIRUBIN,TOTAL 0.3 MG/DL (0.2-1.0)
[2020-01-26 18:37] VITALS: BP 138/82
[2020-01-26 18:59] VITALS: BP 138/82
--- NOTE | 2020-01-26 19:41 | Emergency Room Report ---
History of Present Illness General Chief Complaint: Abdominal Pain Source: Patient Present Illness HPI 54-year-old male with history of colorectal cancer currently under the care of pain management with no recent chemo, and history of cholelithiasis here complaining of right upper quadrant abdominal pain that has been intermittent for the past 2 months and it has exacerbated today. 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 Patient has records of CT scan being done in August which showed cholelithiasis only without cholecystitis as well as recent MRI in January which also showed cholelithiasis without cholecystitis. Patient rates the pain 10 out of 10 at this time. Reports that he has been taking his [place] and tramadol at home that was given to him for colorectal cancer and has not been helping him. Also complains of few bouts of nonbloody emesis as well as loose stools however denies fever and chills at this time. Denies chest pain chest pain radiation. Denies shortness of breath, cough and congestion, and no other associated symptoms. Allergies: Coded Allergies: No Known Allergies (Unverified , 06/03/14) COVID-19 Screening Contact w/high risk pt: No Recent Travel to affected area: No Experienced COVID-19 symptoms?: No COVID-19 Testing performed [employer]: Yes - 01/18/20 COVID-19 Screening: Negative COVID-19 COVID-19 Testing Source: [facility] Patient History Past Medical History: see triage record Past Surgical History: none Pertinent Family History: none Immunizations: UTD Reviewed Nursing Documentation: PMH: Agreed; PSxH: Agreed Nursing Documentation-PMH Hx Cardiac Problems: No Hx Hypertension: Yes Hx Cancer: No Hx Gastrointestinal Problems: Yes - 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 Hx Neurological Problems: No Review of Systems All Other Systems: negative except mentioned in HPI Physical Exam Vital Signs Date Time Temp Pulse Resp B/P (MAP) Pulse Ox O2 Delivery O2 Flow Rate FiO2 01/26/20 16:31 97.9 81 19 133/86 (102) 97 Room Air Sp02 EP Interpretation: reviewed, normal General Appearance: no apparent distress, alert, GCS 15, non-toxic Head: normocephalic, atraumatic Eyes: bilateral eye normal inspection, bilateral eye PERRL ENT: hearing grossly normal, normal pharynx, no angioedema, normal voice Neck: full range of motion, supple/symm/no masses Respiratory: chest non-tender, lungs clear, normal breath sounds, no rhonchi, speaking full sentences Cardiovascular #1: regular rate, rhythm, no edema, no murmur Gastrointestinal: no mass, no organomegaly, no peritonitis, no bruit, non- distended, no hernia, guarding - Right upper quadrant Rectal: deferred Genitourinary: no CVA tenderness Musculoskeletal: back normal, no calf tenderness Neurologic: alert, motor strength/tone normal, oriented x3, sensory intact, responsive, speech normal Psychiatric: judgement/insight normal, memory normal, mood/affect normal, no suicidal/homicidal ideation Skin: no rash Lymphatic: no adenopathy Medical Decision Making PA Attestation All diagnosis and treatment plans were discussed and reviewed by my supervising physician Dr. Bridges Diagnostic Impression: Primary Impression: Cholelithiasis Additional Impression: Left against medical advice ER Course 54-year-old male with history of colorectal cancer currently under the care of pain management with no recent chemo, and history of cholelithiasis here complaining of right upper quadrant abdominal pain that has been intermittent for the past 2 months and it has exacerbated today. 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 Patient has records of CT scan being done in August which showed cholelithiasis only without cholecystitis as well as recent MRI in January which also showed cholelithiasis without cholecystitis. Patient rates the pain 10 out of 10 at this time. Reports that he has been taking his [place] and tramadol at home that was given to him for colorectal cancer and has not been helping him. Also complains of few bouts of nonbloody emesis as well as loose stools however denies fever and chills at this time. Denies chest pain chest pain radiation. Denies shortness of breath, cough and congestion, and no other associated symptoms. Ddx considered but are not limited to: appendicitis, cholecystitis, gastritis, gastroenteritis, UTI, pyelonephritis, SBO, diverticulitis, pancreatitis Vital signs: are WNL, pt. is afebrile H&PE are most consistent with: Cholelithiasis without cholecystitis ORDERS: abdominal CT, abdominal pain set, EKG, patient left without the CT scan being done ED INTERVENTIONS: Morphine, NS bolus, Zofran, Pepcid, Toradol When patient found out that he is going to be transferred to a different hospital for admission and patient wanted to investigate and see if that hospital stay for him to go and whether he will trust the hospitalist and he decided to sign AGAINST MEDICAL ADVICE today. I advised him that he can also follow-up with primary doctor for referral to general surgeon. Patient has full judgment and stable at time of making decision to leave AGAINST MEDICAL ADVICE. Patient reports that he has [place] at home will take for pain. Patient also mentions that if his pain gets worse again then he will come back for admission and transfer. EKG Diagnostic Results Rate: normal Rhythm: NSR ST Segments: no acute changes Other Impression No acute ST changes Last Vital Signs Date Time Temp Pulse Resp B/P (MAP) Pulse Ox O2 Delivery O2 Flow Rate FiO2 01/26/20 18:59 97.8 80 17 138/82 100 Room Air Disposition: AGAINST MEDICAL ADVICE Condition: Stable Referrals: [facility] (PCP) Mai Borrero Jan 26, 2020 19:41
== END 2020-01-26 18:55 | disposition left against medical advice (07) ==
LOC: EMR 17:22 → CANBEDREQ 18:57
DX: K80.20 Calculus of gallbladder without cholecystitis without obstruction (principal); I10 Essential (primary) hypertension; Z53.29 Procedure and treatment not carried out because of patient's decision for other reasons; Z85.038 Personal history of other malignant neoplasm of large intestine
CPT/HCPCS: 36415; 80053; 80307; 81003; 83690; 84484; 85025; 85610; 86850; 86900; 86901; 93005; 96361; 96374; 96375; J1885; J2270; J2405; J7030; Z7502; 99284